=== PATIENT | male | born 1980 | race Caucasian/White ===

== ENCOUNTER → 2017-08-04 | Outpatient (CLI) | payer OTHER ==
[~2017-08-04] MED LIST: CLON0.5T3 PO; DIPH-437 PO; LTHSR/300 PO; MEDLIST; MOME100A INH; MULT-506 PO; PRLSR20 PO; QUET1TAB32 PO; UNISOM PO
--- NOTE | 2017-08-04 10:42 | DIAGNOSTIC IMAGING REPORT ---
ABDOMEN FOR HERNIA CLINICAL HISTORY: INGUINAL HERNIA hernia TECHNIQUE: Ultrasound COMPARISON STUDY: 07/21/2012 FINDINGS: Current study shows no evidence for hernia. Pre and post Valsalva maneuvers were attempted. IMPRESSION: Normal study. No evidence for hernia. The above report was generated using voice recognition software. It may contain grammatical, syntax or spelling errors. Electronically signed by: Jesse Mauro M.D. 08/04/2017 10:41 AM Dictated Date/Time: 08/04/2017 10:40 AM
== END | disposition home or self-care (01) ==
LOC: C.ULTRBC 10:07
PROVIDERS: ATTEND Nurse Practitioner Adult Health
DX: K40.90 Unilateral inguinal hernia, without obstruction or gangrene, not specified as recurrent (principal); R10.814 Left lower quadrant abdominal tenderness

== ENCOUNTER → 2017-08-19 | Outpatient (CLI) | payer OTHER ==
[~2017-08-19] MED LIST changes: +OPTIRAY 320 IV PRN
--- NOTE | 2017-08-19 16:52 | DIAGNOSTIC IMAGING REPORT ---
ABD/PELVIS IV AND ORAL CONT CLINICAL HISTORY: 37 years-old Male presenting with DIARRHEA, LLQ ABD TENDERNESS. TECHNIQUE: Multidetector CT of the abdomen and pelvis was performed after the administration of oral and intravenous contrast. IV contrast: 115 mL of Optiray 328 A dose lowering technique was used consistent with the principles of ALARA (as low as reasonably achievable). COMPARISON: None. CT DOSE (mGy.cm): The estimated cumulative dose is 535.98 mGy.cm. FINDINGS: Snap Shearer topogram: Evidence of hernia repair in the left inguinal region. Lung bases: Minimal dependent changes likely atelectasis. Mosaic attenuation could suggest small airways disease. Normal heart size. No pericardial or pleural effusion. Liver: Normal morphology. No liver lesion. Patent hepatic vasculature. Biliary: No intrahepatic or extrahepatic biliary ductal dilatation. Normal gallbladder. Pancreas: Normal. Spleen: Normal. Adrenal glands: Normal. Kidneys and ureters: Normal. No hydronephrosis. Bladder: Normal. Pelvic organs: Prostate and seminal vesicles normal. Bowel: Moderate stool burden in the right and transverse colon. The appendix is normal. No bowel obstruction. Peritoneal cavity: No free fluid or intraperitoneal gas. Lymph nodes: No enlarged lymph nodes in the abdomen or pelvis. Vasculature: Aorta and IVC patent and normal in caliber. Abdominal wall: Postsurgical changes of left inguinal hernia repair. Musculoskeletal: Normal. IMPRESSION: 1. No acute intra-abdominal pathology. Left lower quadrant demonstrates evidence of left inguinal hernia repair. No evidence of recurrent herniation. Electronically signed by: Brayan Everett M.D. 08/19/2017 4:51 PM Dictated Date/Time: 08/19/2017 4:46 PM
== END | disposition home or self-care (01) ==
LOC: C.CTS 16:17
PROVIDERS: ATTEND Nurse Practitioner Adult Health
DX: R11.10 Vomiting, unspecified (principal); R19.7 Diarrhea, unspecified; R10.30 Lower abdominal pain, unspecified; R10.814 Left lower quadrant abdominal tenderness

== ENCOUNTER → 2017-08-29 | Outpatient (CLI) | payer OTHER ==
[~2017-08-29] MED LIST changes: -CLON0.5T3 PO; +KLN/5 PO; -OPTIRAY 320 IV PRN
--- NOTE | 2017-08-29 12:23 | DIAGNOSTIC IMAGING REPORT ---
ULTRASOUND OF THE THYROID GLAND CLINICAL HISTORY: Lymphadenopathy.. COMPARISON STUDY: No priors. TECHNIQUE: Real-time, grayscale, and color flow sonography of the thyroid gland is performed utilizing a high-frequency linear transducer. Images are reviewed in the transverse and longitudinal planes. Additional survey imaging of the neck was performed to assess for lymphadenopathy. FINDINGS: Right lobe: The right lobe of the thyroid gland is top normal in size and somewhat heterogeneous in echotexture, measuring 5.7 x 2.4 x 2.3 cm. Left lobe: The left lobe of the thyroid gland is normal in size and somewhat heterogeneous in echotexture, measuring 5.8 x 2.5 x 2.6 cm. Isthmus: The thyroid isthmus is normal in appearance and measures 0.5 cm in AP diameter. Lymph nodes: There is a complex structure identified in the left neck which measures 2.9 x 1.8 x 2.2 cm. This appears to be least partially necrotic or cystic. Prominent right cervical lymph nodes are identified. These demonstrate large fatty conchis and measure up to 1.8 cm in length. IMPRESSION: 1. The thyroid gland is mild heterogeneous in echotexture. No focal thyroid lesion is seen. 2. There is a 2.9 cm indeterminant complex lesion in the left neck which appears to be at least partially cystic or necrotic. This could represent a necrotic/infected lymph node, a congenital lesion such as a branchial cleft cyst with possible superinfection, or less likely necrotic neoplasm. Clinical correlation will be essential. Clinical follow-up to resolution is recommended. If this fails to resolve additional imaging with contrast-enhanced CT she considered prior to tissue sampling. 3. Additional prominent cervical lymph nodes are noted as above. Electronically signed by: Duane Calixto M.D. 08/29/2017 12:22 PM Dictated Date/Time: 08/29/2017 12:17 PM
== END | disposition home or self-care (01) ==
LOC: C.ULTRBC 10:11
PROVIDERS: ATTEND Nurse Practitioner Adult Health
DX: R59.1 Generalized enlarged lymph nodes (principal)

== ENCOUNTER → 2017-09-04 | Outpatient (CLI) | payer OTHER ==
[~2017-09-04] MED LIST changes: +OPTIRAY 320 IV PRN
--- NOTE | 2017-09-04 16:37 | DIAGNOSTIC IMAGING REPORT ---
SOFT TISSUE NECK WITH CLINICAL HISTORY: 37 years-old Male presenting with ABNORMAL ULTRASOUND, LYMPH NODE ABCESS, marker placed at the site of clinical concern. TECHNIQUE: Multidetector CT of the neck was performed after the administration of intravenous contrast. IV contrast: 116 mL of Optiray 320. A dose lowering technique was used consistent with the principles of ALARA (as low as reasonably achievable). COMPARISON: Ultrasound from 08/29/2017. CT DOSE (mGy.cm): The estimated cumulative dose is 596.31 mGy.cm. FINDINGS: Pocket Builder topogram: Unremarkable. Round well-defined 2 cm lesion inferior to the left angle the mandible and submandibular gland, anterior to the left internal jugular vein and left carotid bulb. No extension between the left internal and external carotid arteries. Prominent left facial vein drains into the internal jugular vein immediately inferior to the lesion. The lesion demonstrates subtle nodular peripheral enhancement at the inferior margin (series 3 image 245) though the remainder of the lesion appears cystic and nonenhancing. This lesion is below the level of the hyoid bone and likely within the carotid space. No significantly enlarged lymph nodes by CT size criteria. Vasculature patent. Thyroid gland normal. No suspicious nodular soft tissue along the aerodigestive tract. No effacement of the valleculae or performed sinuses. Minimal groundglass opacity at the superior segment of the left lower lobe and in the right apex. Osseous structures normal. Intracranially vibration within normal limits. IMPRESSION: Predominantly cystic lesion at the level of the left carotid bifurcation with apparent peripheral nodular enhancement inferiorly. This does not have imaging characteristics to suggest a necrotic lymph node. Among differential considerations, this appearance favors a venolymphatic malformation/cavernous lymphangioma. Branchial cleft cyst would not be expected to demonstrate such nodular enhancement. This is not a typical appearance for a neurogenic tumor given the paucity of soft tissue. Electronically signed by: Brayan Everett M.D. 09/04/2017 4:36 PM Dictated Date/Time: 09/04/2017 4:25 PM
== END | disposition home or self-care (01) ==
LOC: C.CTS 16:07
PROVIDERS: ATTEND Nurse Practitioner Adult Health
DX: R93.8 Abnormal findings on diagnostic imaging of other specified body structures (principal); R59.0 Localized enlarged lymph nodes; L04.0 Acute lymphadenitis of face, head and neck

== ENCOUNTER → 2017-09-16 | Outpatient (CLI) | payer OTHER ==
[~2017-09-16] MED LIST changes: +CLON0.5T3 PO; -KLN/5 PO; -OPTIRAY 320 IV PRN
--- NOTE | 2017-09-16 14:12 | DIAGNOSTIC IMAGING REPORT ---
ULTRASOUND-GUIDED FINE-NEEDLE ASPIRATION BIOPSY OF A LEFT NECK MASS. CLINICAL HISTORY: R22.1 left neck mass COMPARISON STUDY: CT scan dated 09/04/2017, ultrasound dated 08/29/2017 FINDINGS: A timeout was performed. The risks of the procedure were explained the patient, and informed consent was obtained. The patient was prepped in sterile fashion. The skin was anesthetized 1% lidocaine. Under ultrasound guidance, aspiration was performed with a 25-gauge needle. Cystic fluid was withdrawn. A second pass was performed utilizing a 22-gauge needle. 4 cc of straw-colored cystic fluid was removed. The attending pathologist requested a third pass with sampling of the cyst wall. This was performed with a 25-gauge needle. There were no immediate complications. Final pathology is pending at this time. IMPRESSION: Successful aspiration of a cystic left neck mass. 4 cc of straw-colored ascitic fluid was removed. Final pathology is pending at this time. Electronically signed by: Omer Olguin M.D. 09/16/2017 2:11 PM Dictated Date/Time: 09/16/2017 2:07 PM
== END | disposition home or self-care (01) ==
LOC: C.ULTR 12:31
DX: R22.1 Localized swelling, mass and lump, neck (principal)

== ENCOUNTER → 2017-10-01 | Outpatient (CLI) | payer OTHER ==
--- NOTE | 2017-10-01 14:20 | DIAGNOSTIC IMAGING REPORT ---
ULTRASOUND GUIDED FINE ASPIRATION OF CYSTIC LEFT NECK MASS CLINICAL HISTORY: Neck mass. COMPARISON STUDY: CT of the neck September 04, 2017 and neck ultrasound August 29, 2017. PROCEDURE: The procedure, risks and benefits were discussed with the patient and informed written consent was obtained. The procedure was performed by Dr. Camacho following a timeout. Sonography of the neck demonstrated a complex cystic left level 4 mass which corresponds to the previously identified abnormality. This measures 2.6 x 1.2 x 1.6 cm. An inferior solid component was noted and was targeted for fine needle aspiration. Skin was prepped and draped in sterile fashion and local anesthesia was achieved with 1% lidocaine. Under direct ultrasound guidance, 4 25-gauge fine needle aspirations were performed. Predominantly cyst contents were noted a few atypical cells. No further sampling was performed given 4 passes. The patient tolerated the procedure well and no immediate complications were evident. IMPRESSION: Ultrasound guided fine needle aspiration of 2.6 cm complex cystic left level 4 cervical mass. Inferior solid component of lesion targeted during biopsy. Electronically signed by: Buck Camacho M.D. 10/01/2017 2:19 PM Dictated Date/Time: 10/01/2017 2:16 PM
== END | disposition home or self-care (01) ==
LOC: C.ULTR 12:36
PROVIDERS: ATTEND Physician Assistant
DX: R22.1 Localized swelling, mass and lump, neck (principal)

== ENCOUNTER 2023-02-18 11:14 | Inpatient (IN) ==
--- NOTE | 2023-02-18 11:26 | Emergency Department Note ---
ED Provider Note NAME: OBEY SMITH AGE: 42 SEX: M : 1980 ARRIVES VIA: Ambulance INFORMANT: [Patient][, ] ED PROVIDER(S): [Gerber Amato MD] I did review an operative report from Dr. Vital from November 2022. The patient did have a left inguinal hernia at that time he did have hernia with mesh lysis of adhesions to the sigmoid colon and left side of abdominal wall. CHIEF COMPLAINT: [] MEDICAL DECISION MAKING: [Note all interventions, Interpret results, Remember additional problems, list any social risk factors] Prior /Outside records reviewed: [none] Differential diagnosis: [] Diagnostics, as interpreted by me: ECG: [none] Cardiac monitoring: An order was placed for continuous cardiac monitoring. The monitor shows a rate of [] with [] rhythm. [Patient was placed on pulse oximetry] Medical decision rules: [none] Imaging studies: See below HPI: [] PAST MEDICAL HISTORY: [See Below] PAST SURGICAL HISTORY: [See Below] SOCIAL HISTORY: [See Below] HOME MEDICATIONS: [See Below] ALLERGIES: [See Below] VITALS: [See Below] PHYSICAL EXAMINATION: GENERAL: NAD, [wearing a mask,] non-toxic. EYE EXAM: Normal conjunctiva. PERRL, no anisocoria and EOM's grossly intact w/o pain. NECK: Supple, no nuchal rigidity, no adenopathy, non-tender. No signs of meningismus. FROM of the neck with good chin to chest and neck extension. No stridor. LUNGS: Clear to auscultation. Normal chest wall mechanics. HEART: NSR, no MRG. ABDOMEN: Abdomen soft, non-tender, no masses, no rebound or guarding. BACK: No CVA TTP. SKIN: No rashes and no bruising. UPPER EXTREMITIES: Upper extremities are grossly normal. LOWER EXTREMITIES: Grossly normal, no edema. NEURO EXAM: A&O x3, cranial nerves II-XII grossly intact, normal speech, moves all 4 extremities. Past Med/Surg History Medical History (Updated 12/25/22 @ 07:02 by Himanshu Vital MD) Asthma inhaler daily and prn, nebulizer prn Bipolar disorder Cancer thyroid; s/p radioactive iodine tx; now on supplement Chronic obstructive pulmonary disease extensive smoking hx Fatty liver GERD (gastroesophageal reflux disease) Hyperlipidemia Insomnia Medical marijuana use Restless leg syndrome Temporomandibular joint disorder mild, no device Surgical History History of carpal tunnel surgery of left wrist History of colonoscopy History of esophagogastroduodenoscopy (EGD) History of inguinal hernia repair History of thyroidectomy, total History of tooth extraction all teeth removed under local Family History Grandmother (Maternal) Family history of diabetes mellitus Grandfather (Maternal) Prostate cancer Coronary heart disease Father Hypertension Mother Depression Family/Other FHx: allergies Cancer Asthma Other No family history of adverse response to anesthesia Denies family history of Ovarian cancer Myocardial infarction Breast cancer Colorectal cancer Stroke Social History Smoking Status: Current every day smoker Tobacco Type: Cigarettes Cigarettes Per Day: 20 a day (advised); Second Hand Exposure: No; Do You Dip or Chew Tobacco: No; Hx Alcohol Use: No Hx Substance Use: Yes (medical marijuana (advised on policy)) Last Used Substance Other:: LAST USED "LAST NIGHT" Substance Use Type Other:: MOTHER STATES THAT PT HAS RX FOR MARIJUANA Preferred Language: Bulgarian Communication Ability: Effective Statistical Reporting Analyst Required: No Beliefs That Will Affect Care: None Current Living Situation: Parent Feels Safe at Home: Yes Assistive Devices: Denture - Upper, Denture - Lower, Glasses and Nebulizer Allergies Allergies Allergy/AdvReac Type Severity Reaction Status Date / Time calcium polycarbophil Allergy Mild "Binds me Verified 12/25/22 06:11 [From FiberCon] up real bad" grass pollen Allergy Mild Congested Verified 12/25/22 06:11 ragweed pollen Allergy Mild Congested Verified 12/25/22 06:11 sulfamethoxazole Allergy Mild Rash Verified 12/25/22 06:11 [From Septra] trimethoprim [From Mayra] Allergy Mild Rash Verified 12/25/22 06:11 Home Meds Home Medications Medication Instructions Recorded Confirmed Medical Marijuana 1 dose UD PRN Pain 08/19/18 12/25/22 omeprazole 20 mg tablet,delayed 40 mg PO QAM 08/19/18 12/25/22 release calcium carbonate 200 mg calcium 200 mg PO TID PRN GERD 11/10/18 12/25/22 (500 mg) chewable tablet (Tums) cholecalciferol (vitamin D3) 50 2,000 units PO QAM 02/17/19 12/25/22 mcg (2,000 unit) capsule gabapentin 300 mg capsule 900 mg PO BID 02/17/19 12/25/22 hydroxyzine HCl 50 mg tablet 50 - 150 mg PO HS PRN Sleep 02/17/19 12/25/22 acetaminophen 500 mg tablet 1,000 mg PO Q6H PRN Pain 12/16/22 12/25/22 albuterol sulfate 2.5 mg/3 mL 2.5 mg inhalation UD PRN Shortness 12/16/22 12/25/22 (0.083 %) solution for nebulization Of Breath azelastine 137 mcg (0.1 %) nasal 1 spray intranasal BID 12/16/22 12/25/22 spray aerosol buspirone 15 mg tablet 15 mg PO BID 12/16/22 12/25/22 ferrous sulfate 325 mg (65 mg 325 mg PO 3XWK 12/16/22 12/25/22 iron) tablet fluticasone fur. 200 mcg-umeclid 1 inh inhalation QAM 12/16/22 12/25/22 62.5 mcg-vilant 25 mcg inhalat.powder (Trelegy Ellipta) fluticasone propionate 50 2 spray intranasal QAM 12/16/22 12/25/22 mcg/actuation nasal spray,suspension levothyroxine 150 mcg tablet 150 mcg PO QAM 12/16/22 12/25/22 mirtazapine 45 mg tablet 45 mg PO HS 12/16/22 12/25/22 montelukast 10 mg tablet 10 mg PO QAM 12/16/22 12/25/22 (Singulair) thiamine HCl (vitamin B1) 100 mg 100 mg PO QAM 12/16/22 12/25/22 tablet topiramate 100 mg tablet (Topamax) 100 mg PO HS 12/16/22 12/25/22 Previous Rx's Medication Instructions Recorded albuterol sulfate 90 mcg/actuation 2 puff inhalation QID PRN SHORT OF 10/05/20 aerosol inhaler (Ventolin HFA) BREATH #18 grams oxycodone-acetaminophen 5 mg-325 1 tab PO Q6H PRN pain #20 tabs 12/25/22 mg tablet (Percocet) Results & Data (ED) Vital Signs Vital Signs - 24 hr 06/20/23 11:23 Temperature 36.7 C Temperature Source Oral Pulse Rate 97 H Respiratory Rate 18 Respiratory Effort / Characteristics Non-Labored Respiratory Depth Normal Respiratory Pattern Regular Blood Pressure 129/94 Blood Pressure Mean 105 Pulse Oximetry 97 Oxygen Delivery Method Room Air Sepsis New/Unexplained Change in Mental Status No Sepsis Action Taken by Nursing No Action Required Discharge Plan Visit Data Chief Complaint: Mental Health Evaluation Stated Complaint: [facility] ED Provider: Carson Apodaca Forms Stand Alone Forms: [facility], Suicide Prevention Resources Prescriptions Prescriptions: No Action albuterol sulfate [Ventolin HFA] 90 mcg/actuation HFA aerosol inhaler 2 puff INHALATION QID PRN (Reason: SHORT OF BREATH) Qty: 18 5RF cholecalciferol (vitamin D3) 2,000 unit capsule 2,000 units PO QAM omeprazole 20 mg Tablet,Delayed Release (Dr/Ec) 40 mg PO QAM Medical Marijuana 1 dose UD PRN (Reason: Pain) Rx Instructions: INHALATION AND ORAL PER PATIENT gabapentin 300 mg capsule 900 mg PO BID Patient Comments: 300 mg PO take 1 tablet in am, take 3 tablet in pm; TAKES 1 TAB IN AM/2 TABS IN PM hydroxyzine HCl 50 mg tablet 50 - 150 mg PO HS PRN (Reason: Sleep) Patient Comments: 50 mg PO take 1 -2 tablet at bedtime PRN; Rx Instructions: 50 mg PO take 1 -2 tablet at bedtime PRN; calcium carbonate [Tums] 200 mg calcium (500 mg) Tablet,Chewable 200 mg PO TID PRN (Reason: GERD) thiamine HCl (vitamin B1) 100 mg Tablet 100 mg PO QAM levothyroxine 150 mcg Tablet 150 mcg PO QAM mirtazapine 45 mg Tablet 45 mg PO HS montelukast [Singulair] 10 mg Tablet 10 mg PO QAM azelastine 137 mcg (0.1 %) Aerosol,[place] 1 spray INTRANASAL BID Rx Instructions: administer into each nostril topiramate [Topamax] 100 mg Tablet 100 mg PO HS fluticasone propionate 50 mcg/actuation [place],Suspension 2 spray INTRANASAL QAM Rx Instructions: administer into each nostril Trelegy Ellipta 200-62.5-25 mcg Blister With Device 1 inh INHALATION QAM ferrous sulfate 325 mg (65 mg iron) Tablet 325 mg PO 3XWK acetaminophen 500 mg Tablet 1,000 mg PO Q6H PRN (Reason: Pain) buspirone 15 mg Tablet 15 mg PO BID albuterol sulfate 2.5 mg /3 mL (0.083 %) Solution For Nebulization 2.5 mg INHALATION UD PRN (Reason: Shortness Of Breath) oxycodone-acetaminophen [Percocet] 5-325 mg tablet 1 tab PO Q6H PRN (Reason: pain) Qty: 20 0RF Referrals Referrals: Quincy Parson DO [Primary Care Provider] -
--- NOTE | 2023-02-18 11:57 | Emergency Department Note ---
Impression & Plan Suicidal ideations, Mood disorder ED Provider Note NAME: OBEY SMITH AGE: 42 SEX: M : 1980 ARRIVES VIA: Ambulance INFORMANT: Patient ED PROVIDER(S): Carson Apodaca DO CHIEF COMPLAINT: Suicidal thoughts HPI: Patient is a 42-year-old male who presents to the ER for suicidal thoughts. Patient was seen today by psychiatry Yfn Silverio. He expressed that in the past 2 months he has held a gun to his mouth and was going to kill himself but his father stopped him and this occurred back in November. He also attempted overdosing but was just vomiting. He does not believe his medications for bipolar are working. Specifically the BuSpar makes him feel very agitated and jittery and anxious. He does not feel that he can go on any further. He does not want to be admitted. He notes he has not had any suicidal thoughts or attempts in the past month. He denies any headache or change in vision. No chest pain or shortness of breath. No nausea, vomiting, or diarrhea. No dysuria, urgency, or frequency. PAST MEDICAL HISTORY:See Below PAST SURGICAL HISTORY:See Below FAMILY HISTORY:See Below SOCIAL HISTORY:See Below HOME MEDICATIONS:See Below ALLERGIES:See Below VITALS:See Below PHYSICAL EXAMINATION: GENERAL: Sitting up in bed, alert, well appearing, well nourished, no distress, non-toxic EYE EXAM: normal conjunctiva. OROPHARYNX: mucous membranes are moist LUNGS: Clear to auscultation. Normal chest wall mechanics HEART: no murmurs, S1 normal and S2 normal ABDOMEN: abdomen soft, non-tender, normo-active bowel sounds, no masses, no rebound or guarding. UPPER EXTREMITIES: upper extremities are grossly normal. LOWER EXTREMITIES: No pitting edema. NEURO EXAM: Normal sensorium, cranial nerves II-XII grossly intact, normal speech, no gross weakness of arms, no gross weakness of legs. PSYCH: Admits to feeling very depressed and suicide attempts about 2 months ago. Would like to come in for inpatient treatment. MEDICAL DECISION MAKING: Patient is a 42-year-old male who presents ER for above-stated complaint. External records reviewed. Labs show no significant leukocytosis or anemia. BMP with LFTs bilirubin and TSH was fairly unremarkable. UA was clean. Tox was positive for marijuana. Alcohol negative. COVID-negative. Patient was me dically stable under my care. Patient was signed out to Dr. Faust is awaiting placement. Patient was seen and evaluated by her psychiatric acute care occupational therapist prior to this. She did make several referrals. I did discuss case with her and patient was excepted to 3 S. at 3 PM ED OBSERVATION: The patient was placed in observation status at 1115. Medical stability and psychiatric evaluation. During the time in observation, the patient was frequently reassessed and received blood work and evaluation by her psychiatric acute care occupational therapist. On Final reassessment the patient was resting comfortably and the patient was excepted to 3 S. at 3 PM. Patient was observed for a total of 4 hours in the ER. Triage Nursing notes reviewed. Limited review of prior medical records performed Vital Signs: reviewed and remarkable for no significant abnormalities Differential diagnosis: Mood disorder, infection, hypoglycemia, electrolyte abnormalities, cardiac sources, intracerebral event, toxicologic, trauma, neurologic, as well as other pathologies. ER treatment provided: See below Diagnostics interpreted by me include EKG and cardiac monitoring as listed below: -ECG: none -Laboratory studies:Interpreted by me as stated above in MDM and shown below. Imaging studies: Xrays: As interpreted by me:none CTs show: none Consultation(s): As described in MDM Procedures:none Critical Care: None Past Med/Surg History Medical History (Updated 02/18/23 @ 14:17 by Carson Apodaca DO) Asthma inhaler daily and prn, nebulizer prn Bipolar disorder Cancer thyroid; s/p radioactive iodine tx; now on supplement Chronic obstructive pulmonary disease extensive smoking hx Fatty liver GERD (gastroesophageal reflux disease) Hyperlipidemia Insomnia Medical marijuana use Restless leg syndrome Temporomandibular joint disorder mild, no device Surgical History History of carpal tunnel surgery of left wrist History of colonoscopy History of esophagogastroduodenoscopy (EGD) History of inguinal hernia repair History of thyroidectomy, total History of tooth extraction all teeth removed under local Family History Grandmother (Maternal) Family history of diabetes mellitus Grandfather (Maternal) Prostate cancer Coronary heart disease Father Hypertension Mother Depression Family/Other FHx: allergies Cancer Asthma Other No family history of adverse response to anesthesia Denies family history of Ovarian cancer Myocardial infarction Breast cancer Colorectal cancer Stroke Social History Smoking Status: Current every day smoker Tobacco Type: Cigarettes Cigarettes Per Day: 20 a day (advised); Second Hand Exposure: No; Do You Dip or Chew Tobacco: No; Hx Alcohol Use: No Hx Substance Use: Yes (medical marijuana (advised on policy)) Last Used Substance Other:: LAST USED "LAST NIGHT" Substance Use Type Other:: MOTHER STATES THAT PT HAS RX FOR MARIJUANA Preferred Language: Luxembourgish Communication Ability: Effective Paving Foreman Required: No Beliefs That Will Affect Care: None Current Living Situation: Parent Feels Safe at Home: Yes Gender Identity: Male Assistive Devices: Denture - Upper, Denture - Lower, Glasses and Nebulizer Allergies Allergies Allergy/AdvReac Type Severity Reaction Status Date / Time calcium polycarbophil Allergy Mild "Binds me Verified 12/25/22 06:11 [From FiberCon] up real bad" grass pollen Allergy Mild Congested Verified 12/25/22 06:11 ragweed pollen Allergy Mild Congested Verified 12/25/22 06:11 sulfamethoxazole Allergy Mild Rash Verified 12/25/22 06:11 [From Septra] trimethoprim [From Septra] Allergy Mild Rash Verified 12/25/22 06:11 Home Meds Home Medications Medication Instructions Recorded Confirmed Medical Marijuana 1 dose UD PRN Pain 08/19/18 12/25/22 omeprazole 20 mg tablet,delayed 40 mg PO QAM 08/19/18 12/25/22 release calcium carbonate 200 mg calcium 200 mg PO TID PRN GERD 11/10/18 12/25/22 (500 mg) chewable tablet (Tums) cholecalciferol (vitamin D3) 50 2,000 units PO QAM 02/17/19 12/25/22 mcg (2,000 unit) capsule gabapentin 300 mg capsule 900 mg PO BID 02/17/19 12/25/22 hydroxyzine HCl 50 mg tablet 50 - 150 mg PO HS PRN Sleep 02/17/19 12/25/22 acetaminophen 500 mg tablet 1,000 mg PO Q6H PRN Pain 12/16/22 12/25/22 albuterol sulfate 2.5 mg/3 mL 2.5 mg inhalation UD PRN Shortness 12/16/22 12/25/22 (0.083 %) solution for nebulization Of Breath azelastine 137 mcg (0.1 %) nasal 1 spray intranasal BID 12/16/22 12/25/22 spray aerosol buspirone 15 mg tablet 15 mg PO BID 12/16/22 12/25/22 ferrous sulfate 325 mg (65 mg 325 mg PO 3XWK 12/16/22 12/25/22 iron) tablet fluticasone fur. 200 mcg-umeclid 1 inh inhalation QAM 12/16/22 12/25/22 62.5 mcg-vilant 25 mcg inhalat.powder (Trelegy Ellipta) fluticasone propionate 50 2 spray intranasal QAM 12/16/22 12/25/22 mcg/actuation nasal spray,suspension levothyroxine 150 mcg tablet 150 mcg PO QAM 12/16/22 12/25/22 mirtazapine 45 mg tablet 45 mg PO HS 12/16/22 12/25/22 montelukast 10 mg tablet 10 mg PO QAM 12/16/22 12/25/22 (Singulair) thiamine HCl (vitamin B1) 100 mg 100 mg PO QAM 12/16/22 12/25/22 tablet topiramate 100 mg tablet (Topamax) 100 mg PO HS 12/16/22 12/25/22 Previous Rx's Medication Instructions Recorded albuterol sulfate 90 mcg/actuation 2 puff inhalation QID PRN SHORT OF 10/05/20 aerosol inhaler (Ventolin HFA) BREATH #18 grams oxycodone-acetaminophen 5 mg-325 1 tab PO Q6H PRN pain #20 tabs 12/25/22 mg tablet (Percocet) Results & Data (ED) Vital Signs Vital Signs - 24 hr 02/18/23 11:23 02/18/23 14:26 Temperature 36.7 C Temperature Source Oral Pulse Rate 97 H Pulse Rate [Finger] 70 Respiratory Rate 18 18 Respiratory Effort / Characteristics Non-Labored Non-Labored Respiratory Depth Normal Normal Respiratory Pattern Regular Regular Blood Pressure 129/94 Blood Pressure [Left Arm] 136/86 Blood Pressure Mean 105 Blood Pressure Mean [Left Arm] 102 Pulse Oximetry 97 97 Oxygen Delivery Method Room Air Room Air Sepsis New/Unexplained Change in Mental Status No Sepsis Action Taken by Nursing No Action Required Laboratory Data 02/18/23 11:35 02/18/23 11:35 Lab Results 02/18/23 02/18/23 02/18/23 Range/Units 11:33 11:35 11:35 WBC 9.01 (4.8-10.8) K/ul RBC 5.21 (4.70-6.10) M/uL Hgb 15.4 (14.0-18.0) g/dl Hct 46.3 (42.0-52.0) % MCV 88.9 (80.0-100.0) fL MCH 29.6 (25.0-34.0) pg MCHC 33.3 (32.0-36.0) g/dL RDW Std Deviation 42.5 (36.4-46.3) fL RDW Coeff of Eugenia 13.0 (11.5-14.5) % Plt Count 313 (130-400) K/uL MPV 8.4 L (9.4-12.4) fL Immature Gran % (Auto) 0.6 % Neut % (Auto) 66.8 % Lymph % (Auto) 24.8 % Fisher % (Auto) 6.2 % Eos % (Auto) 1.3 % Baso % (Auto) 0.3 % Neut # (Auto) 6.02 (1.40-6.50) K/uL Lymph # (Auto) 2.23 (1.2-3.4) K/uL Fisher # (Auto) 0.56 (0.11-0.59) K/uL Eos # (Auto) 0.12 (0-0.50) K/uL Baso # (Auto) 0.03 (0-0.2) K/uL Immature Gran # (Auto) 0.05 (0.01-0.20) K/uL Sodium 138 (136-145) mmol/L Potassium 4.3 (3.5-5.1) mmol/L Chloride 110 H (98-107) mmol/L Carbon Dioxide 23 (21-32) mmol/L Anion Gap 5 (3-11) BUN 22 (6-23) mg/dl Creatinine 1.07 (0.6-1.4) mg/dl Est Cr Clr Drug Dosing Not Reportable Est GFR ( Amer) 100.1 ml/min Est GFR (Non-Af Amer) 86.4 ml/min BUN/Creatinine Ratio 20.6 H (10-20) Glucose 106 H (70-99(Fasting)) mg/dl Calcium 8.9 (8.6-10.3) mg/dl Total Bilirubin 0.2 (0.2-1.0) mg/dl AST 15 (13-39) U/L ALT 9 (7-52) U/L Alkaline Phosphatase 75 (34-104) U/L Total Protein 7.2 (6.0-8.3) gm/dl Albumin 4.5 (3.4-5.0) gm/dl Globulin 2.7 (2.5-4.0) gm/dl Albumin/Globulin Ratio 1.7 (0.9-2) TSH (0.300-4.500) uIu/ml Free T4 (0.61-1.60) ng/dl Urine Color Urine Appearance (Clear) Urine pH (4.5-7.5) Ur Specific [place] (1.000-1.030) Urine Protein (Negative) Urine Glucose (UA) (Negative) Urine Ketones (Negative) Urine Blood (Negative) Urine Nitrite (Negative) Urine Bilirubin (Negative) Urine Urobilinogen (Negative) Ur Leukocyte Esterase (Negative) Salicylates (3.0-30) mg/dl Urine Opiates Screen (Neg) Ur Methadone, Qual (Neg) Acetaminophen (10-30) ug/ml Urine Barbiturates (Neg) Ur Phencyclidine (PCP) (Neg) U Amphetamin/Meth Scrn (Neg) MDMA (Ecstasy) Screen (Neg) U Benzodiazepines Scrn (Neg) Ur Cocaine Metabolite (Neg) U Marijuana (THC) Screen (Neg) Ethyl Alcohol mg/dL (<10.0) mg/dl SARS-CoV-2, RNA, NAAT NEGATIVE (NEGATIVE) 02/18/23 02/18/23 02/18/23 Range/Units 11:35 11:35 11:35 WBC (4.8-10.8) K/ul RBC (4.70-6.10) M/uL Hgb (14.0-18.0) g/dl Hct (42.0-52.0) % MCV (80.0-100.0) fL MCH (25.0-34.0) pg MCHC (32.0-36.0) g/dL RDW Std Deviation (36.4-46.3) fL RDW Coeff of Eugenia (11.5-14.5) % Plt Count (130-400) K/uL MPV (9.4-12.4) fL Immature Gran % (Auto) % Neut % (Auto) % Lymph % (Auto) % Fisher % (Auto) % Eos % (Auto) % Baso % (Auto) % Neut # (Auto) (1.40-6.50) K/uL Lymph # (Auto) (1.2-3.4) K/uL Fisher # (Auto) (0.11-0.59) K/uL Eos # (Auto) (0-0.50) K/uL Baso # (Auto) (0-0.2) K/uL Immature Gran # (Auto) (0.01-0.20) K/uL Sodium (136-145) mmol/L Potassium (3.5-5.1) mmol/L Chloride (98-107) mmol/L Carbon Dioxide (21-32) mmol/L Anion Gap (3-11) BUN (6-23) mg/dl Creatinine (0.6-1.4) mg/dl Est Cr Clr Drug Dosing Est GFR ( Amer) ml/min Est GFR (Non-Af Amer) ml/min BUN/Creatinine Ratio (10-20) Glucose (70-99(Fasting)) mg/dl Calcium (8.6-10.3) mg/dl Total Bilirubin (0.2-1.0) mg/dl AST (13-39) U/L ALT (7-52) U/L Alkaline Phosphatase (34-104) U/L Total Protein (6.0-8.3) gm/dl Albumin (3.4-5.0) gm/dl Globulin (2.5-4.0) gm/dl Albumin/Globulin Ratio (0.9-2) TSH 0.172 L (0.300-4.500) uIu/ml Free T4 0.68 (0.61-1.60) ng/dl Urine Color Urine Appearance (Clear) Urine pH (4.5-7.5) Ur Specific [place] (1.000-1.030) Urine Protein (Negative) Urine Glucose (UA) (Negative) Urine Ketones (Negative) Urine Blood (Negative) Urine Nitrite (Negative) Urine Bilirubin (Negative) Urine Urobilinogen (Negative) Ur Leukocyte Esterase (Negative) Salicylates < 3.0 L (3.0-30) mg/dl Urine Opiates Screen (Neg) Ur Methadone, Qual (Neg) Acetaminophen < 3 L (10-30) ug/ml Urine Barbiturates (Neg) Ur Phencyclidine (PCP) (Neg) U Amphetamin/Meth Scrn (Neg) MDMA (Ecstasy) Screen (Neg) U Benzodiazepines Scrn (Neg) Ur Cocaine Metabolite (Neg) U Marijuana (THC) Screen (Neg) Ethyl Alcohol mg/dL < 10.0 (<10.0) mg/dl SARS-CoV-2, RNA, NAAT (NEGATIVE) 02/18/23 02/18/23 Range/Units 11:40 11:40 WBC (4.8-10.8) K/ul RBC (4.70-6.10) M/uL Hgb (14.0-18.0) g/dl Hct (42.0-52.0) % MCV (80.0-100.0) fL MCH (25.0-34.0) pg MCHC (32.0-36.0) g/dL RDW Std Deviation (36.4-46.3) fL RDW Coeff of Eugenia (11.5-14.5) % Plt Count (130-400) K/uL MPV (9.4-12.4) fL Immature Gran % (Auto) % Neut % (Auto) % Lymph % (Auto) % Fisher % (Auto) % Eos % (Auto) % Baso % (Auto) % Neut # (Auto) (1.40-6.50) K/uL Lymph # (Auto) (1.2-3.4) K/uL Fisher # (Auto) (0.11-0.59) K/uL Eos # (Auto) (0-0.50) K/uL Baso # (Auto) (0-0.2) K/uL Immature Gran # (Auto) (0.01-0.20) K/uL Sodium (136-145) mmol/L Potassium (3.5-5.1) mmol/L Chloride (98-107) mmol/L Carbon Dioxide (21-32) mmol/L Anion Gap (3-11) BUN (6-23) mg/dl Creatinine (0.6-1.4) mg/dl Est Cr Clr Drug Dosing Est GFR ( Amer) ml/min Est GFR (Non-Af Amer) ml/min BUN/Creatinine Ratio (10-20) Glucose (70-99(Fasting)) mg/dl Calcium (8.6-10.3) mg/dl Total Bilirubin (0.2-1.0) mg/dl AST (13-39) U/L ALT (7-52) U/L Alkaline Phosphatase (34-104) U/L Total Protein (6.0-8.3) gm/dl Albumin (3.4-5.0) gm/dl Globulin (2.5-4.0) gm/dl Albumin/Globulin Ratio (0.9-2) TSH (0.300-4.500) uIu/ml Free T4 (0.61-1.60) ng/dl Urine Color Yellow Urine Appearance Clear (Clear) Urine pH 7.5 (4.5-7.5) Ur Specific [place] 1.013 (1.000-1.030) Urine Protein Negative (Negative) Urine Glucose (UA) Negative (Negative) Urine Ketones Negative (Negative) Urine Blood Negative (Negative) Urine Nitrite Negative (Negative) Urine Bilirubin Negative (Negative) Urine Urobilinogen Negative (Negative) Ur Leukocyte Esterase Negative (Negative) Salicylates (3.0-30) mg/dl Urine Opiates Screen Neg (Neg) Ur Methadone, Qual Neg (Neg) Acetaminophen (10-30) ug/ml Urine Barbiturates Neg (Neg) Ur Phencyclidine (PCP) Neg (Neg) U Amphetamin/Meth Scrn Neg (Neg) MDMA (Ecstasy) Screen Neg (Neg) U Benzodiazepines Scrn Neg (Neg) Ur Cocaine Metabolite Neg (Neg) U Marijuana (THC) Screen Pos H (Neg) Ethyl Alcohol mg/dL (<10.0) mg/dl SARS-CoV-2, RNA, NAAT (NEGATIVE) Discharge Plan Visit Data Chief Complaint: Mental Health Evaluation Stated Complaint: [facility] ED Provider: Carson Apodaca Discharge Problem: Suicidal ideations, Mood disorder Forms Stand Alone Forms: My [facility], Suicide Prevention Resources Prescriptions Prescriptions: No Action albuterol sulfate [Ventolin HFA] 90 mcg/actuation HFA aerosol inhaler 2 puff INHALATION QID PRN (Reason: SHORT OF BREATH) Qty: 18 5RF cholecalciferol (vitamin D3) 2,000 unit capsule 2,000 units PO QAM omeprazole 20 mg Tablet,Delayed Release (Dr/Ec) 40 mg PO QAM Medical Marijuana 1 dose UD PRN (Reason: Pain) Rx Instructions: INHALATION AND ORAL PER PATIENT gabapentin 300 mg capsule 900 mg PO BID Patient Comments: 300 mg PO take 1 tablet in am, take 3 tablet in pm; TAKES 1 TAB IN AM/2 TABS IN PM hydroxyzine HCl 50 mg tablet 50 - 150 mg PO HS PRN (Reason: Sleep) Patient Comments: 50 mg PO take 1 -2 tablet at bedtime PRN; Rx Instructions: 50 mg PO take 1 -2 tablet at bedtime PRN; calcium carbonate [Tums] 200 mg calcium (500 mg) Tablet,Chewable 200 mg PO TID PRN (Reason: GERD) thiamine HCl (vitamin B1) 100 mg Tablet 100 mg PO QAM levothyroxine 150 mcg Tablet 150 mcg PO QAM mirtazapine 45 mg Tablet 45 mg PO HS montelukast [Singulair] 10 mg Tablet 10 mg PO QAM azelastine 137 mcg (0.1 %) Aerosol,[place] 1 spray INTRANASAL BID Rx Instructions: administer into each nostril topiramate [Topamax] 100 mg Tablet 100 mg PO HS fluticasone propionate 50 mcg/actuation [place],Suspension 2 spray INTRANASAL QAM Rx Instructions: administer into each nostril Trelegy Ellipta 200-62.5-25 mcg Blister With Device 1 inh INHALATION QAM ferrous sulfate 325 mg (65 mg iron) Tablet 325 mg PO 3XWK acetaminophen 500 mg Tablet 1,000 mg PO Q6H PRN (Reason: Pain) buspirone 15 mg Tablet 15 mg PO BID albuterol sulfate 2.5 mg /3 mL (0.083 %) Solution For Nebulization 2.5 mg INHALATION UD PRN (Reason: Shortness Of Breath) oxycodone-acetaminophen [Percocet] 5-325 mg tablet 1 tab PO Q6H PRN (Reason: pain) Qty: 20 0RF Referrals Referrals: Quincy Parson DO [Primary Care Provider] -
[2023-02-18 12:13] LABS: Appearance Urine Clear (Clear); Bilirubin Urine Negative (Negative); Blood Urine Negative (Negative); Color Urine Yellow; Glucose Urine UA Negative (Negative); Ketones Urine Negative (Negative); Leukocyte Esterase Urine Negative (Negative); Nitrite Urine Negative (Negative); Protein Urine Negative (Negative); Specific Gravity Urine 1.013 (1.000-1.030); Urobilinogen Urine Negative (Negative); pH Urine 7.5 (4.5-7.5)
[2023-02-18 12:37] LABS: Basophils # (auto) 0.03 K/uL (0-0.2); Basophils % (auto) 0.3 %; Eosinophils # (auto) 0.12 K/uL (0-0.50); Eosinophils % (auto) 1.3 %; Hematocrit (blood only) 46.3 % (42.0-52.0); Hemoglobin 15.4 g/dl (14.0-18.0); Immature Granulocytes # (auto) 0.05 K/uL (0.01-0.20); Immature Granulocytes % (auto) 0.6 %; Lymphocytes # (auto) 2.23 K/uL (1.2-3.4); Lymphocytes % (auto) 24.8 %; Mean Corpuscular Hemoglobin 29.6 pg (25.0-34.0); Mean Corpuscular Hgb Conc 33.3 g/dL (32.0-36.0); Mean Corpuscular Volume 88.9 fL (80.0-100.0); Mean Platelet Volume 8.4 fL (9.4-12.4); Monocytes # (auto) 0.56 K/uL (0.11-0.59); Monocytes % (auto) 6.2 %; Neutrophils # (auto) 6.02 K/uL (1.40-6.50); Neutrophils % (auto) 66.8 %; Platelet Count 313 K/uL (130-400); RDW Standard Deviation 42.5 fL (36.4-46.3); Red Blood Count 5.21 M/uL (4.70-6.10); White Blood Count 9.01 K/ul (4.8-10.8)
[2023-02-18 12:49] LABS: Acetaminophen < 3 ug/ml (10-30); Salicylate < 3.0 mg/dl (3.0-30)
[2023-02-18 12:52] LABS: Alanine Aminotransferase 9 U/L (7-52); Albumin Globulin Ratio 1.7 (0.9-2); Albumin Level 4.5 gm/dl (3.4-5.0); Alkaline Phosphatase 75 U/L (34-104); Anion Gap 5 (3-11); Aspartate Aminotransferase 15 U/L (13-39); BUN Creatinine Ratio 20.6 (10-20); Bilirubin,Total 0.2 mg/dl (0.2-1.0); Blood Urea Nitrogen 22 mg/dl (6-23); Calcium 8.9 mg/dl (8.6-10.3); Carbon Dioxide 23 mmol/L (21-32); Chloride 110 mmol/L (98-107); Est GFR (African American) 100.1 ml/min; Est GFR (Non-African American) 86.4 ml/min; Globulin 2.7 gm/dl (2.5-4.0); Glucose 106 mg/dl (70-99(Fasting)); Potassium 4.3 mmol/L (3.5-5.1); Sodium 138 mmol/L (136-145); Total Protein 7.2 gm/dl (6.0-8.3)
[2023-02-18 12:55] LABS: Amphetamines+Metham, Urine Neg (Neg); Barbiturates, Urine Neg (Neg); Benzodiazepine, Urine Neg (Neg); Cocaine, Urine Neg (Neg); MDMA (Ecstacy), Urine Neg (Neg); Methadone, Urine Neg (Neg); Opiate, Urine Neg (Neg); Phencyclidine, Urine Neg (Neg)
[2023-02-18 13:05] LABS: Thyroid Stimulating Hormone 0.172 uIu/ml (0.300-4.500)
[2023-02-18 14:16] LABS: T4 Free Thyroxine 0.68 ng/dl (0.61-1.60)
[2023-02-18] MEDS ORDERED: ACETAMINOPHEN 325 MG TAB PO PRN (14:42)
[2023-02-18] MEDS ORDERED: hydrOXYzine HCl 25 MG TAB PO PRN (14:42)
[2023-02-18] MEDS ORDERED: MAGNESIUM HYDROXIDE SUSP 30 ML UDC PO PRN (14:42)
[2023-02-18] MEDS ORDERED: BISMUTH SUBSALICYLATE LIQD 236 ML PO PRN (14:42)
[2023-02-18] MEDS ORDERED: ALUMINUM/MAGNESIUM SUSP 30 ML UDC PO PRN (14:42)
[2023-02-18] MEDS ORDERED: SODIUM CHLORIDE 0.65% NA SOLN 45 ML (OCEAN) PRN (14:42)
[2023-02-18] MEDS ORDERED: ACETAMINOPHEN 500 MG TAB PO PRN (14:44)
[2023-02-18] MEDS ORDERED: ALBUTEROL HFA 8 GM INHALER INH PRN (14:44)
[2023-02-18] MEDS ORDERED: traZODone HCL 50 MG TAB PO PRN (14:47)
[2023-02-18] MEDS ORDERED: NICOTINE POLACRILEX 2 MG GUM MT PRN (15:14)
[2023-02-18] MEDS: NICOTINE 21 MG/24 HR TDSY TD SCH (17:21)
[2023-02-18] MEDS ORDERED: TOPIRAMATE 100 MG TAB PO SCH (21:00)
[2023-02-18] MEDS: GABAPENTIN 300 MG CAP PO SCH (21:30)
[2023-02-18] MEDS: MIRTAZAPINE SOLTAB 15 MG PO SCH (21:30)
[2023-02-18] MEDS: AZELASTINE HCL 0.1% NASAL 200 SPRAYS/27,400 MCG BTL SCH (21:31)
[2023-02-18] MEDS ORDERED: TOPIRAMATE 50 MG TAB PO SCH (22:00)
[2023-02-18] MEDS ORDERED: QUEtiapine FUMARATE 200 MG TAB PO SCH (22:00)
--- NOTE | 2023-02-19 08:08 | History & Physical ---
Date of Service February 19, 2023 Impression / Recommendations Impression 42 yo male with 10+ year hx of mood disorder, remote alcohol abuse, presents with multiple psychosocial stressors and recent suicide attempt/alcohol binge and near fatal gesture. He notes worsening irritability with Buspar but primarily presents with depression. He states previous manic symptoms were mainly insomnia and racing thoughts. Records from 2022 [facility] reviewed, will request EKG. (1) Suicidal ideations: Plan The patient was admitted to the [facility] ([facility] unit) on q15 min checks (behavioral with suicide precautions) for safety. The patient will participate in group, recreational, and milieu therapies and will be offered additional individual and family sessions as clinically appropriate. Reviewed cholesterol panel, his triglycerides are quite high (likely Seroquel). Buspar has already been discontinued, topamax may be decreasing his appetite so will d/c. Begin Seroquel taper 600 mg hs with plan for another atypical trial, perhaps Zyprexa given sleep and appetite issues. Consider Remeron taper. Ambien short term use as prn for sleep as multiple agents ineffective. Will add mid day dose of Neurontin to address breakthrough pain/mood. PT consult as was to start outpatient PT this week for left UE neuropathy. Inventory Assets Strengths: manages complex medical, family oriented Needs: improve coping, outpatient therapy Suicide Risk Level Suicide Risk Level: High-Moderate (q15 min suicide checks) Risk Factors Assessment Male: Yes : Yes Do You Have Access To A Gun?: No Health Problems: Yes Mental Health Diagnoses: Yes Substance Use Disorders: Yes (hx EToh, recent use, ongoing MJ) Previous Attempt: Yes Family History of Suicide: No Previous Psychiatric Hospitalization: Yes Protective Factors Assessment Employed: No Supportive Family: Yes (parents as able) Psychiatric History Identifying Data OBEY SMITH is a 42-year-old M who currently lives in [place], has a history of bipolar disorder, and was admitted on 02/18/23 14:42 on a 201 voluntary commitment for suicidality. Chief Complaint concerned meds not working, recent suicide attempts History of Present Illness The patient reported that he's been feeling more irritable and depressed. He isn't sleeping as well and having more racing thoughts about suicide. In November he had a gun in his mouth, his father physically intervened and removed the guns from the home. The patient mentioned drinking excessive alcohol with his medications with the hope of not waking up but "nothing happened but I threw up." He feels guilty for relapsing after 15 years of sobriety. He describes his life as "down hill" since his cancer surgery 5 years ago--his friends stopped "coming around", he is estranged from his sister, parents are aging (father may have early dementia), his girlfriend broke up with him recently and he's been unable to find a job that can accommodate his post op left UE neuropathy. He feels that his doctor may be colluding with his ex to ignore his pain complaints and recently involved a patient advocate through [facility] to get a return call. He doesn't feel that his meds have been helping for some time nor is the medical MJ (mainly flower) helping with his pain or sleep. He notes an increase in health related anxiety given his ongoing GI issues, need to start PT, and his need for EKG to rule out QTc due to polypharmacy (reports last EKG 1 month ago). Past Psychiatric History Previous Psych History: transitioning psych services from [facility] to [facility]. Current Psychiatric Diagnosis: Depression Outpatient Services: Was to start treatment with [facility]. Previous Psych Admissions: [facility] 10 + years ago Do You Have Access To A Gun?: No History of Previous Suicide Attempt: Yes Past Medication Trials: Helper, Doxepin, Klonopin, Risperdal, current meds; feels Buspar is agitating Past Head Trauma/Neuro History History of Concussion/Seizure: No Allergies Allergy/AdvReac Type Severity Reaction Status Date / Time calcium polycarbophil Allergy Mild "Binds me Verified 12/25/22 06:11 [From FiberCon] up real bad" grass pollen Allergy Mild Congested Verified 12/25/22 06:11 ragweed pollen Allergy Mild Congested Verified 12/25/22 06:11 sulfamethoxazole Allergy Mild Rash Verified 12/25/22 06:11 [From ] trimethoprim [From ] Allergy Mild Rash Verified 12/25/22 06:11 Home Medications Medication Instructions Recorded Confirmed Type omeprazole 20 mg tablet,delayed 40 mg PO QAM 08/19/18 02/18/23 History release calcium carbonate 200 mg calcium 200 mg PO TID PRN GERD 11/10/18 02/18/23 History (500 mg) chewable tablet (Tums) hydroxyzine HCl 50 mg tablet 50 - 150 mg PO HS PRN Sleep 02/17/19 02/18/23 History albuterol sulfate 90 mcg/actuation 2 puff inhalation QID PRN SHORT OF 10/05/20 02/18/23 Rx aerosol inhaler (Ventolin HFA) BREATH #18 grams acetaminophen 500 mg tablet 1,000 mg PO Q6H PRN Pain 12/16/22 02/18/23 History albuterol sulfate 2.5 mg/3 mL 2.5 mg inhalation UD PRN Shortness 12/16/22 02/18/23 History (0.083 %) solution for nebulization Of Breath azelastine 137 mcg (0.1 %) nasal 1 spray intranasal BID 12/16/22 02/18/23 History spray aerosol ferrous sulfate 325 mg (65 mg 325 mg PO 3XWK 12/16/22 02/18/23 History iron) tablet fluticasone fur. 200 mcg-umeclid 1 inh inhalation QAM 12/16/22 02/18/23 History 62.5 mcg-vilant 25 mcg inhalat.powder (Trelegy Ellipta) fluticasone propionate 50 2 spray intranasal QAM 12/16/22 02/18/23 History mcg/actuation nasal spray,suspension levothyroxine 150 mcg tablet 150 mcg PO QAM 12/16/22 02/18/23 History mirtazapine 45 mg tablet 45 mg PO HS 12/16/22 02/18/23 History montelukast 10 mg tablet 10 mg PO QAM 12/16/22 02/18/23 History (Singulair) thiamine HCl (vitamin B1) 100 mg 100 mg PO QAM 12/16/22 02/18/23 History tablet topiramate 100 mg tablet (Topamax) 150 mg PO HS 12/16/22 02/18/23 History gabapentin 300 mg capsule 900 mg BID 02/18/23 02/18/23 History quetiapine 400 mg tablet (Seroquel) 800 mg PO HS 02/18/23 02/18/23 History tizanidine 4 mg capsule 4 mg PO Q6 PRN Muscle Spasm 02/18/23 02/18/23 History buspirone 10 mg tablet 20 mg PO BID 02/19/23 02/19/23 History cholecalciferol (vitamin D3) 125 125 mcg PO DAILY 02/19/23 02/19/23 History mcg (5,000 unit) capsule diclofenac sodium 50 mg 50 mg PO TID PRN Pain 02/19/23 02/19/23 History tablet,delayed release Family History Family History of: Depression (mother) Alcohol History Hx of Alcohol Use Over the Past 12 Months: Yes (binge drinking past two weeks after 15 yr sober) AUDIT Total Score: 12 Smoking Use Have You Smoked or Used Tobacco Products in the Last 30 Days: Yes tobacco type: cigarettes Smoking Status: Current every day smoker Smoking packs per day: 40 Substance History Hx of Prescription Med Misuse Over the Past 12 Months: No Hx of Over the Counter Med Misuse Over the Past 12 Months: No Hx of Inhalent Misuse Over the Past 12 Months: No Hx of Organic Substance Use Over the Past 12 Months: Yes (marijuana) Hx of Illegal Substances/Street Drug Use Over Past 12 Months: No Problems as a Result of Past Substance Use: None Identified Personal History Living Arrangements: Home Childhood: 1 sister Highest Grade Completed: Some College Employment Status: Unemployed Marital Status: Single Number Of Children: 0 Beliefs That Will Affect Care: None Current Legal Problems: No Hx Legal Problems: Yes (remote DUI) Hx Traumatic Life Events: Yes (cancer dx) Patient History Medical History (Updated 02/19/23 @ 12:51 by Keerthi Shah MD) Asthma inhaler daily and prn, nebulizer prn Bipolar disorder Cancer thyroid; s/p radioactive iodine tx; now on supplement Chronic obstructive pulmonary disease extensive smoking hx Fatty liver GERD (gastroesophageal reflux disease) Hyperlipidemia Insomnia Medical marijuana use Restless leg syndrome Temporomandibular joint disorder mild, no device Surgical History History of carpal tunnel surgery of left wrist History of colonoscopy History of esophagogastroduodenoscopy (EGD) History of inguinal hernia repair History of thyroidectomy, total History of tooth extraction all teeth removed under local Family History Grandmother (Maternal) Family history of diabetes mellitus Grandfather (Maternal) Prostate cancer Coronary heart disease Father Hypertension Mother Depression Family/Other FHx: allergies Cancer Asthma Other No family history of adverse response to anesthesia Denies family history of Ovarian cancer Myocardial infarction Breast cancer Colorectal cancer Stroke Social History Smoking Status: Current every day smoker Tobacco Type: Cigarettes Cigarettes Per Day: 20 a day (advised); Second Hand Exposure: No; Do You Dip or Chew Tobacco: No; Hx Alcohol Use: No Hx Substance Use: Yes (medical marijuana (advised on policy)) Last Used Substance Other:: LAST USED "LAST NIGHT" Substance Use Type Other:: MOTHER STATES THAT PT HAS RX FOR MARIJUANA Preferred Language: Wolof Communication Ability: Effective Jury Consultant Required: No Beliefs That Will Affect Care: None Current Living Situation: Parent Feels Safe at Home: Yes Gender Identity: Male Assistive Devices: Denture - Upper, Denture - Lower, Glasses and Nebulizer Review of Systems Review of Systems: All systems reviewed & are unremarkable except as noted in HPI & below Physical Exam Psychiatric: Orientation: alert and oriented x 3 Apperance: appropriately dressed and appropriately groomed Eye Contact: good eye contact Motor Behavior: no abnormal motor movements Speech: normal rate/rhythm/volume of speech Affect: + depressed affect Mood: + depressed mood Thought Process: goal directed thought process Thought Content: reality based without delusions Suicidal Thoughts: + reports suicidal thoughts (passive, OD, no plan or intent here) Homicidal Thoughts: denies homicidal thoughts Hallucinations: no auditory hallucinations and no visual hallucinations Cognition: attention grossly intact and language grossly intact Estimated Intelligence: consistent with education level Insight: + limited insight Judgment: + limited judgement Vital Signs (Past 24 Hours): Last Vital Signs Temp 36.6 C 02/19/23 06:45 Pulse 93 H 02/19/23 06:46 Resp 16 02/19/23 06:45 BP 111/82 02/19/23 06:46 Pulse Ox 98 02/18/23 16:02 O2 Del Method Room Air 02/18/23 16:02 Exam Statement: A physical exam was performed in the ED by Dr. Apodaca for the purposes of medical clearance. I accept that physical as correct and adequate for the purposes of the inpatient physical exam. Results & Data ([facility]) Laboratory Results Laboratory Results - last 24 hr 02/18/23 02/18/23 02/18/23 11:33 11:35 11:35 WBC 9.01 RBC 5.21 Hgb 15.4 Hct 46.3 MCV 88.9 MCH 29.6 MCHC 33.3 RDW Std Deviation 42.5 RDW Coeff of Eugenia 13.0 Plt Count 313 MPV 8.4 L Immature Gran % (Auto) 0.6 Neut % (Auto) 66.8 Lymph % (Auto) 24.8 Knox % (Auto) 6.2 Eos % (Auto) 1.3 Baso % (Auto) 0.3 Neut # (Auto) 6.02 Lymph # (Auto) 2.23 Knox # (Auto) 0.56 Eos # (Auto) 0.12 Baso # (Auto) 0.03 Immature Gran # (Auto) 0.05 Sodium 138 Potassium 4.3 Chloride 110 H Carbon Dioxide 23 Anion Gap 5 BUN 22 Creatinine 1.07 Est Cr Clr Drug Dosing Not Reportable Est GFR ( Amer) 100.1 Est GFR (Non-Af Amer) 86.4 BUN/Creatinine Ratio 20.6 H Glucose 106 H Calcium 8.9 Total Bilirubin 0.2 AST 15 ALT 9 Alkaline Phosphatase 75 Total Protein 7.2 Albumin 4.5 Globulin 2.7 Albumin/Globulin Ratio 1.7 TSH Free T4 Urine Color Urine Appearance Urine pH Ur Specific [place] Urine Protein Urine Glucose (UA) Urine Ketones Urine Blood Urine Nitrite Urine Bilirubin Urine Urobilinogen Ur Leukocyte Esterase Salicylates Urine Opiates Screen Ur Methadone, Qual Acetaminophen Urine Barbiturates Ur Phencyclidine (PCP) U Amphetamin/Meth Scrn MDMA (Ecstasy) Screen U Benzodiazepines Scrn Ur Cocaine Metabolite U Marijuana (THC) Screen U Marijuana THC Carboxy Drug Screen Comment Ethyl Alcohol mg/dL SARS-CoV-2, RNA, NAAT NEGATIVE 02/18/23 02/18/23 02/18/23 11:35 11:35 11:35 WBC RBC Hgb Hct MCV MCH MCHC RDW Std Deviation RDW Coeff of Eugenia Plt Count MPV Immature Gran % (Auto) Neut % (Auto) Lymph % (Auto) Knox % (Auto) Eos % (Auto) Baso % (Auto) Neut # (Auto) Lymph # (Auto) Knox # (Auto) Eos # (Auto) Baso # (Auto) Immature Gran # (Auto) Sodium Potassium Chloride Carbon Dioxide Anion Gap BUN Creatinine Est Cr Clr Drug Dosing Est GFR ( Amer) Est GFR (Non-Af Amer) BUN/Creatinine Ratio Glucose Calcium Total Bilirubin AST ALT Alkaline Phosphatase Total Protein Albumin Globulin Albumin/Globulin Ratio TSH 0.172 L Free T4 0.68 Urine Color Urine Appearance Urine pH Ur Specific [place] Urine Protein Urine Glucose (UA) Urine Ketones Urine Blood Urine Nitrite Urine Bilirubin Urine Urobilinogen Ur Leukocyte Esterase Salicylates < 3.0 L Urine Opiates Screen Ur Methadone, Qual Acetaminophen < 3 L Urine Barbiturates Ur Phencyclidine (PCP) U Amphetamin/Meth Scrn MDMA (Ecstasy) Screen U Benzodiazepines Scrn Ur Cocaine Metabolite U Marijuana (THC) Screen U Marijuana THC Carboxy Drug Screen Comment Ethyl Alcohol mg/dL < 10.0 SARS-CoV-2, RNA, NAAT 02/18/23 02/18/23 02/18/23 11:40 11:40 11:40 WBC RBC Hgb Hct MCV MCH MCHC RDW Std Deviation RDW Coeff of Eugenia Plt Count MPV Immature Gran % (Auto) Neut % (Auto) Lymph % (Auto) Knox % (Auto) Eos % (Auto) Baso % (Auto) Neut # (Auto) Lymph # (Auto) Knox # (Auto) Eos # (Auto) Baso # (Auto) Immature Gran # (Auto) Sodium Potassium Chloride Carbon Dioxide Anion Gap BUN Creatinine Est Cr Clr Drug Dosing Est GFR ( Amer) Est GFR (Non-Af Amer) BUN/Creatinine Ratio Glucose Calcium Total Bilirubin AST ALT Alkaline Phosphatase Total Protein Albumin Globulin Albumin/Globulin Ratio TSH Free T4 Urine Color Yellow Urine Appearance Clear Urine pH 7.5 Ur Specific [place] 1.013 Urine Protein Negative Urine Glucose (UA) Negative Urine Ketones Negative Urine Blood Negative Urine Nitrite Negative Urine Bilirubin Negative Urine Urobilinogen Negative Ur Leukocyte Esterase Negative Salicylates Urine Opiates Screen Neg Ur Methadone, Qual Neg Acetaminophen Urine Barbiturates Neg Ur Phencyclidine (PCP) Neg U Amphetamin/Meth Scrn Neg MDMA (Ecstasy) Screen Neg U Benzodiazepines Scrn Neg Ur Cocaine Metabolite Neg U Marijuana (THC) Screen Pos H U Marijuana THC Carboxy Pending Drug Screen Comment Pending Ethyl Alcohol mg/dL SARS-CoV-2, RNA, NAAT Current Inpatient Medications Current Inpatient Medications: Current Inpatient Medications Acetaminophen (Acetaminophen 500 Mg Tab) 1,000 mg PO Q6H PRN PRN Reason: Pain Stop: 03/20/23 14:43 Albuterol (Albuterol Hfa 8 Gm Inhaler) 2 puffs INH QID PRN PRN Reason: SHORT OF BREATH Stop: 03/20/23 14:43 Azelastine HCl (Azelastine Hcl 0.1% Nasal 200 Sprays/27,400 Mcg Btl) 1 sprays NA BID LOUISE Stop: 03/20/23 20:59 Last Admin: 02/18/23 21:31 Dose: 1 sprays Bismuth Subsalicylate (Bismuth Subsalicylate Liqd 236 Ml) 15 ml PO PRN PRN PRN Reason: Loose Stool Stop: 03/20/23 14:41 Calcium Carbonate (Calcium Carbonate 500 Mg Chewable Tab) 500 mg PO TID PRN PRN Reason: GERD Stop: 03/20/23 14:43 Ferrous Sulfate (Ferrous Sulfate 325 Mg Tab) 325 mg PO MoWeFr LOUISE Stop: 03/21/23 08:59 Fluticasone Furoate (Fluticasone Furoate 200mcg 14 Puffs/Inhaler) 1 puffs INH DAILY LOUISE Stop: 03/21/23 08:59 Fluticasone Propionate (Fluticasone Propionate Na Spr 16 Gm Btl) 2 sprays NA QAM [facility] Stop: 03/21/23 08:59 Gabapentin (Gabapentin 300 Mg Cap) 900 mg PO BID [facility] Stop: 03/20/23 20:59 Last Admin: 02/18/23 21:30 Dose: 900 mg Hydroxyzine HCl (Hydroxyzine Hcl 25 Mg Tab) 50 mg PO Q4H PRN PRN Reason: Anxiety Stop: 03/20/23 14:41 Last Admin: 02/18/23 21:40 Dose: 50 mg Levothyroxine Sodium (Levothyroxine Sodium 150 Mcg Tablet) 150 mcg PO DAILYBB [facility] Stop: 03/21/23 06:29 Magnesium Hydroxide (Magnesium Hydroxide Susp 30 Ml Udc) 30 ml PO DAILY PRN PRN Reason: Constipation Stop: 03/20/23 14:41 Mirtazapine (Mirtazapine Soltab 15 Mg) 45 mg PO HS [facility] Stop: 03/20/23 20:59 Last Admin: 02/18/23 21:30 Dose: 45 mg Miscellaneous (Remove Nicoderm Patch) 1 each N/A DAILY@59 [facility] Stop: 03/21/23 08:58 Montelukast Sodium (Montelukast Sodium 10 Mg Tablet) 10 mg PO QAM [facility] Stop: 03/21/23 08:59 Nicotine (Nicotine 21 Mg/24 Hr Tdsy) 21 mg TD QAM [facility] Stop: 03/20/23 15:44 Last Admin: 02/18/23 17:21 Dose: 21 mg Nicotine Polacrilex (Nicotine Polacrilex 2 Mg Gum) 1 piece MT PRN PRN PRN Reason: nicotine withdrawal Stop: 03/20/23 15:13 Last Admin: 02/18/23 15:39 Dose: 1 piece Pantoprazole Sodium (Pantoprazole 40 Mg Tab) 40 mg PO QAM [facility] Stop: 03/21/23 08:59 Quetiapine Fumarate (Quetiapine Fumarate 200 Mg Tab) 800 mg PO HS [facility] Stop: 03/20/23 21:59 Last Admin: 02/18/23 21:30 Dose: 800 mg Sodium Chloride (Sodium Chloride 0.65% Na Soln 45 Ml (Dane)) 1 - 2 sprays NA PRN PRN PRN Reason: Nasal Dryness/Congestion Stop: 03/20/23 14:41 Thiamine HCl (Thiamine Hcl 100 Mg Tab) 100 mg PO QAM [facility] Stop: 03/21/23 08:59 Topiramate (Topiramate 50 Mg Tab) 150 mg PO HS [facility] Stop: 03/20/23 21:59 Last Admin: 02/18/23 21:29 Dose: 150 mg Trazodone HCl (Trazodone Hcl 50 Mg Tab) 50 mg PO HS PRN PRN Reason: Insomnia Stop: 03/20/23 14:46 Umeclidinium/Vilanterol (Umeclidinium/Vilanterol 62.5/25mcg 7 Puffs/Inhaler) 1 puffs INH DAILY [facility] Stop: 03/21/23 08:59 Vitamin D (Cholecalciferol 1,000 Units 25 Mcg Tab) 2,000 units PO QAM [facility] Stop: 03/21/23 08:59
[2023-02-19] MEDS: LEVOTHYROXINE SODIUM 150 MCG TABLET PO SCH (08:37)
[2023-02-19] MEDS ORDERED: NON-FORMULARY MEDICATION (Fluticasone-Umeclidin-Vilanter [Trelegy Ellipta] 200-62.5-25 mcg INH SCH (09:00)
[2023-02-19 09:05] LABS: Chol HDL Ratio 7.2 (0-5)
[2023-02-19] MEDS: FLUTICASONE PROPIONATE NA SPR 16 GM BTL SCH (09:33)
[2023-02-19] MEDS: FLUTICASONE FUROATE 200MCG 14 PUFFS/INHALER INH SCH (09:33)
[2023-02-19] MEDS: AZELASTINE HCL 0.1% NASAL 200 SPRAYS/27,400 MCG BTL SCH ×2 (09:34→21:10)
[2023-02-19] MEDS: CHOLECALCIFEROL 1,000 UNITS 25 MCG TAB PO SCH (09:34)
[2023-02-19] MEDS: FERROUS SULFATE 325 MG TAB PO SCH (09:35)
[2023-02-19] MEDS: GABAPENTIN 300 MG CAP PO SCH ×2 (09:35→21:09)
[2023-02-19] MEDS: THIAMINE HCL 100 MG TAB PO SCH (09:35)
[2023-02-19] MEDS: MONTELUKAST SODIUM 10 MG TABLET PO SCH (09:35)
[2023-02-19] MEDS: PANTOprazole 40 MG TAB PO SCH (09:35)
[2023-02-19] MEDS: UMECLIDINIUM/VILANTEROL 62.5/25MCG 7 PUFFS/INHALER INH SCH (09:36)
[2023-02-19] MEDS: NICOTINE 21 MG/24 HR TDSY TD SCH (09:42)
[2023-02-19] MEDS ORDERED: tiZANidine HCL 4 MG TABLET PO PRN (11:51)
[2023-02-19] MEDS: DOCUSATE SODIUM 100 MG CAP PO SCH ×2 (11:52→21:06)
[2023-02-19] MEDS ORDERED: DICLOFENAC SODIUM 25 MG TABDR PO PRN (11:53)
[2023-02-19] MEDS: CALCIUM CARBONATE 500 MG CHEWABLE TAB PO PRN ×2 (11:55→20:31)
[2023-02-19] MEDS ORDERED: ZOLPIDEM TARTRATE 5 MG TAB PO PRN (12:26)
[2023-02-19] MEDS ORDERED: GABAPENTIN 600 MG TAB PO ONE (14:00)
[2023-02-19] MEDS: DICLOFENAC SODIUM 25 MG TABDR PO SCH ×2 (14:31→21:07)
[2023-02-19] MEDS ORDERED: tiZANidine HCL 4 MG TABLET PO SCH ×2 (14:34→18:00)
[2023-02-19] MEDS: tiZANidine HCL 4 MG TABLET PO SCH ×2 (15:04→21:02)
[2023-02-19] MEDS: MIRTAZAPINE SOLTAB 15 MG PO SCH (21:04)
[2023-02-19] MEDS: QUEtiapine FUMARATE 300 MG TABLET PO SCH (21:10)
[2023-02-20] MEDS: LEVOTHYROXINE SODIUM 150 MCG TABLET PO SCH (07:44)
[2023-02-20] MEDS: NICOTINE 21 MG/24 HR TDSY TD SCH (08:36)
[2023-02-20] MEDS: AZELASTINE HCL 0.1% NASAL 200 SPRAYS/27,400 MCG BTL SCH ×2 (09:07→20:59)
[2023-02-20] MEDS: CHOLECALCIFEROL 1,000 UNITS 25 MCG TAB PO SCH (09:09)
[2023-02-20] MEDS: DICLOFENAC SODIUM 25 MG TABDR PO SCH ×3 (09:10→20:57)
[2023-02-20] MEDS: FLUTICASONE PROPIONATE NA SPR 16 GM BTL SCH (09:11)
[2023-02-20] MEDS: DOCUSATE SODIUM 100 MG CAP PO SCH ×2 (09:11→21:00)
[2023-02-20] MEDS: PANTOprazole 40 MG TAB PO SCH (09:12)
[2023-02-20] MEDS: GABAPENTIN 300 MG CAP PO SCH ×3 (09:12→21:02)
[2023-02-20] MEDS: FLUTICASONE FUROATE 200MCG 14 PUFFS/INHALER INH SCH (09:12)
[2023-02-20] MEDS: THIAMINE HCL 100 MG TAB PO SCH (09:12)
[2023-02-20] MEDS: MONTELUKAST SODIUM 10 MG TABLET PO SCH (09:12)
[2023-02-20] MEDS: UMECLIDINIUM/VILANTEROL 62.5/25MCG 7 PUFFS/INHALER INH SCH (09:13)
[2023-02-20] MEDS: tiZANidine HCL 4 MG TABLET PO SCH ×3 (09:13→21:04)
[2023-02-20] MEDS ORDERED: POLYETHYLENE (MIRALAX) 17 GM PACK PO PRN (09:33)
[2023-02-20 10:47] LABS: Marijuana Quant, GCMS Urine 411 ng/mL (<5)
--- NOTE | 2023-02-20 12:17 | Psychiatric Progress Note ---
Date of Service February 20, 2023 Impression / Recommendations Impression 42 yo male with 10+ year hx of mood disorder, remote alcohol abuse, presents with multiple psychosocial stressors and recent suicide attempt/alcohol binge and near fatal gesture. He notes worsening irritability with Buspar but primarily presents with depression. He states previous manic symptoms were mainly insomnia and racing thoughts. 02/20/23: improved (1) Suicidal ideations: Plan 02/20/23: Titrate Neurontin to 900 mg TID. family meeting. 02/19/23: The patient was admitted to the [facility] ([facility]) on q15 min checks (behavioral with suicide precautions) for safety. The patient will participate in group, recreational, and milieu therapies and will be offered additional individual and family sessions as clinically appropriate. Reviewed cholesterol panel, his triglycerides are quite high (likely Seroquel). Buspar has already been discontinued, topamax may be decreasing his appetite so will d/c. Begin Seroquel taper 600 mg hs with plan for another atypical trial, perhaps Zyprexa given sleep and appetite issues. Consider Remeron taper. Ambien short term use as prn for sleep as multiple agents ineffective. Will add mid day dose of Neurontin to address breakthrough pain/mood. PT consult as was to start outpatient PT this week for left UE neuropathy. Inventory Assets Strengths: manages complex medical, family oriented Needs: improve coping, outpatient therapy Suicide Risk Level Suicide Risk Level: Moderate (q15 min suicide checks) Risk Factors Assessment Male: Yes : Yes Do You Have Access To A Gun?: No Health Problems: Yes Mental Health Diagnoses: Yes Substance Use Disorders: Yes (hx EToh, recent use, ongoing MJ) Previous Attempt: Yes Family History of Suicide: No Previous Psychiatric Hospitalization: Yes Protective Factors Assessment Employed: No Supportive Family: Yes (parents as able) Interval History Identifying Information OBEY SMITH is a 42-year-old M who currently lives in [place], has a history of bipolar disorder, and was admitted on 02/18/23 14:42 on a 201 voluntary commitment for suicidality. Chief Complaint "I feel so much better already." Review of Systems Sleep Information Total Hours of Sleep: 6.5 Sleep Comments: PRN Vistaril at 2140 Meal Information Percent Meal Consumed - Breakfast: 90 Percent Meal Consumed - Lunch: 50 Percent Meal Consumed - Dinner: 30 Subjective Subjective Patient was seen & assessed and interval progress reviewed with nursing and social work. Sleep, pain and anxiety are improved. Racing thoughts have resolved. willing for meeting with mother. Physical Exam Psychiatric Orientation: alert and oriented x 3 Apperance: appropriately dressed and appropriately groomed Eye Contact: good eye contact Motor Behavior: no abnormal motor movements Speech: normal rate/rhythm/volume of speech Affect: + depressed affect Mood: + depressed mood Thought Process: goal directed thought process Thought Content: reality based without delusions Suicidal Thoughts: denies suicidal thoughts Homicidal Thoughts: denies homicidal thoughts Hallucinations: no auditory hallucinations and no visual hallucinations Cognition: attention grossly intact and language grossly intact Estimated Intelligence: consistent with education level Insight: + limited insight Judgment: + limited judgement Vital Signs (Past 24 Hours) Last Vital Signs Temp 36.6 C 02/20/23 06:39 Pulse 84 02/20/23 07:00 Resp 16 02/20/23 07:00 BP 127/86 02/20/23 06:40 Pulse Ox 98 02/20/23 07:00 O2 Del Method Room Air 02/20/23 07:00 Results & Data ([facility]) Laboratory Results Laboratory Results - last 24 hr 02/18/23 11:40 U Marijuana THC Carboxy 411 H Drug Screen Comment SEE NOTE Current Inpatient Medications Current Inpatient Medications: Current Inpatient Medications Acetaminophen (Acetaminophen 500 Mg Tab) 1,000 mg PO Q6H PRN PRN Reason: Pain Stop: 03/20/23 14:43 Last Admin: 02/19/23 09:35 Dose: 1,000 mg Albuterol (Albuterol Hfa 8 Gm Inhaler) 2 puffs INH QID PRN PRN Reason: SHORT OF BREATH Stop: 03/20/23 14:43 Last Admin: 02/20/23 07:00 Dose: 2 puffs Azelastine HCl (Azelastine Hcl 0.1% Nasal 200 Sprays/27,400 Mcg Btl) 1 sprays NA BID [facility] Stop: 03/20/23 20:59 Last Admin: 02/20/23 09:07 Dose: 1 sprays Bismuth Subsalicylate (Bismuth Subsalicylate Liqd 236 Ml) 15 ml PO PRN PRN PRN Reason: Loose Stool Stop: 03/20/23 14:41 Calcium Carbonate (Calcium Carbonate 500 Mg Chewable Tab) 500 mg PO TID PRN PRN Reason: GERD Stop: 03/20/23 14:43 Last Admin: 02/19/23 20:31 Dose: 500 mg Diclofenac Sodium (Diclofenac Sodium 25 Mg Tabdr) 50 mg PO TID [facility] Stop: 03/21/23 13:59 Last Admin: 02/20/23 09:10 Dose: 50 mg Docusate Sodium (Docusate Sodium 100 Mg Cap) 200 mg PO BID [facility] Stop: 03/22/23 20:59 Ferrous Sulfate (Ferrous Sulfate 325 Mg Tab) 325 mg PO MoWeFr [facility] Stop: 03/21/23 08:59 Last Admin: 02/19/23 09:35 Dose: 325 mg Fluticasone Furoate (Fluticasone Furoate 200mcg 14 Puffs/Inhaler) 1 puffs INH DAILY [facility] Stop: 03/21/23 08:59 Last Admin: 02/20/23 09:12 Dose: 1 puffs Fluticasone Propionate (Fluticasone Propionate Na Spr 16 Gm Btl) 2 sprays NA QAM [facility] Stop: 03/21/23 08:59 Last Admin: 02/20/23 09:11 Dose: 2 sprays Gabapentin (Gabapentin 300 Mg Cap) 900 mg PO TID [facility] Stop: 03/22/23 13:59 Hydroxyzine HCl (Hydroxyzine Hcl 25 Mg Tab) 50 mg PO Q4H PRN PRN Reason: Anxiety Stop: 03/20/23 14:41 Last Admin: 02/18/23 21:40 Dose: 50 mg Levothyroxine Sodium (Levothyroxine Sodium 150 Mcg Tablet) 150 mcg PO DAILYBB [facility] Stop: 03/21/23 06:29 Last Admin: 02/20/23 07:44 Dose: 150 mcg Magnesium Hydroxide (Magnesium Hydroxide Susp 30 Ml Udc) 30 ml PO DAILY PRN PRN Reason: Constipation Stop: 03/20/23 14:41 Mirtazapine (Mirtazapine Soltab 15 Mg) 45 mg PO HS [facility] Stop: 03/20/23 20:59 Last Admin: 02/19/23 21:04 Dose: 45 mg Miscellaneous (Remove Nicoderm Patch) 1 each N/A DAILY@0859 [facility] Stop: 03/21/23 08:58 Last Admin: 02/20/23 08:36 Dose: 1 each Montelukast Sodium (Montelukast Sodium 10 Mg Tablet) 10 mg PO QAM [facility] Stop: 03/21/23 08:59 Last Admin: 02/20/23 09:12 Dose: 10 mg Nicotine (Nicotine 21 Mg/24 Hr Tdsy) 21 mg TD QAM [facility] Stop: 03/20/23 15:44 Last Admin: 02/20/23 08:36 Dose: 21 mg Nicotine Polacrilex (Nicotine Polacrilex 2 Mg Gum) 1 piece MT PRN PRN PRN Reason: nicotine withdrawal Stop: 03/20/23 15:13 Last Admin: 02/18/23 15:39 Dose: 1 piece Pantoprazole Sodium (Pantoprazole 40 Mg Tab) 40 mg PO QAM [facility] Stop: 03/21/23 08:59 Last Admin: 02/20/23 09:12 Dose: 40 mg Polyethylene Glycol (Polyethylene (Miralax) 17 Gm Pack) 17 gm PO DAILY PRN PRN Reason: Constipation Stop: 03/22/23 09:32 Last Admin: 02/20/23 10:45 Dose: 17 gm Quetiapine Fumarate (Quetiapine Fumarate 300 Mg Tablet) 600 mg PO HS [facility] Stop: 03/21/23 21:59 Last Admin: 02/19/23 21:10 Dose: 600 mg Sodium Chloride (Sodium Chloride 0.65% Na Soln 45 Ml ([place])) 1 - 2 sprays NA PRN PRN PRN Reason: Nasal Dryness/Congestion Stop: 03/20/23 14:41 Thiamine HCl (Thiamine Hcl 100 Mg Tab) 100 mg PO QAM [facility] Stop: 03/21/23 08:59 Last Admin: 02/20/23 09:12 Dose: 100 mg Tizanidine HCl (Tizanidine Hcl 4 Mg Tablet) 4 mg PO TID [facility] Stop: 03/21/23 14:44 Last Admin: 02/20/23 09:13 Dose: 4 mg Umeclidinium/Vilanterol (Umeclidinium/Vilanterol 62.5/25mcg 7 Puffs/Inhaler) 1 puffs INH DAILY [facility] Stop: 03/21/23 08:59 Last Admin: 02/20/23 09:13 Dose: 1 puffs Vitamin D (Cholecalciferol 1,000 Units 25 Mcg Tab) 2,000 units PO QAM [facility] Stop: 03/21/23 08:59 Last Admin: 02/20/23 09:09 Dose: 2,000 units Zolpidem Tartrate (Zolpidem Tartrate 5 Mg Tab) 10 mg PO HS PRN PRN Reason: Sleep Stop: 03/21/23 12:25 Mental Health & Subst Abuse Tx Psychiatrist Name of Psychiatrist: RAGINI Urena Psychiatrist's Date Of Appointment With Psychiatric Provider: 02/25/23 Time of Appointment with Psychiatrist: 3:30 PM Psychiatric Appointment Comment: This appointment will be virtual. Therapist Name of Therapist: [facility] Therapist's Time of Therapist Appointment: You have been referred and placed on the waitlist. Therapy Appointment Comment: When a spot opens, you will be contacted directly. Leasing Machine Tender Name of Leasing Machine Tender: [facility] Phone Number for Leasing Machine Tender: [phone] Case Management Appointment Comment: A child support case officer will be assigned and follow- up with you directly. Post Discharge Appointments Primary Care Physician Name Of Family Doctor/PCP: Peggy Hoyt [facility] Time of Appointment with PCP: Please follow-up with your PCP as needed. Provider Appointment Comment: Amish Harrison, [place]ST[place] Connelly Sample Patternmaker Name of Sample Patternmaker: [facility] Phone Number of Sample Patternmaker: [phone] Sample Patternmaker Appointment Comment: A referral was made and [facility] will contact you directly. Contact Information Discharge Discharge Address: [address], [place] [address]
[2023-02-20] MEDS: CALCIUM CARBONATE 500 MG CHEWABLE TAB PO PRN (15:06)
[2023-02-20] MEDS: MIRTAZAPINE SOLTAB 15 MG PO SCH (21:05)
[2023-02-20] MEDS: QUEtiapine FUMARATE 300 MG TABLET PO SCH (21:07)
[2023-02-21] MEDS: LEVOTHYROXINE SODIUM 150 MCG TABLET PO SCH (07:42)
[2023-02-21] MEDS: MONTELUKAST SODIUM 10 MG TABLET PO SCH (08:29)
[2023-02-21] MEDS: GABAPENTIN 300 MG CAP PO SCH (08:30)
[2023-02-21] MEDS: FERROUS SULFATE 325 MG TAB PO SCH (08:31)
[2023-02-21] MEDS: DOCUSATE SODIUM 100 MG CAP PO SCH (08:31)
[2023-02-21] MEDS: CHOLECALCIFEROL 1,000 UNITS 25 MCG TAB PO SCH (08:32)
[2023-02-21] MEDS: THIAMINE HCL 100 MG TAB PO SCH (08:34)
[2023-02-21] MEDS: tiZANidine HCL 4 MG TABLET PO SCH (08:34)
[2023-02-21] MEDS: PANTOprazole 40 MG TAB PO SCH (08:34)
[2023-02-21] MEDS: FLUTICASONE FUROATE 200MCG 14 PUFFS/INHALER INH SCH (08:35)
[2023-02-21] MEDS: AZELASTINE HCL 0.1% NASAL 200 SPRAYS/27,400 MCG BTL SCH (08:35)
[2023-02-21] MEDS: UMECLIDINIUM/VILANTEROL 62.5/25MCG 7 PUFFS/INHALER INH SCH (08:35)
[2023-02-21] MEDS: DICLOFENAC SODIUM 25 MG TABDR PO SCH (08:36)
[2023-02-21] MEDS: FLUTICASONE PROPIONATE NA SPR 16 GM BTL SCH (08:36)
[2023-02-21] MEDS: NICOTINE 21 MG/24 HR TDSY TD SCH (09:03)
--- NOTE | 2023-02-21 10:34 | Discharge Summary ---
Date of Service February 21, 2023 History of Present Illness The patient reported that he's been feeling more irritable and depressed. He isn't sleeping as well and having more racing thoughts about suicide. In November he had a gun in his mouth, his father physically intervened and removed the guns from the home. The patient mentioned drinking excessive alcohol with his medications with the hope of not waking up but "nothing happened but I threw up." He feels guilty for relapsing after 15 years of sobriety. He describes his life as "down hill" since his cancer surgery 5 years ago--his friends stopped "coming around", he is estranged from his sister, parents are aging (father may have early dementia), his girlfriend broke up with him recently and he's been unable to find a job that can accommodate his post op left UE neuropathy. He feels that his doctor may be colluding with his ex to ignore his pain complaints and recently involved a patient advocate through [employer] to get a return call. He doesn't feel that his meds have been helping for some time nor is the medical MJ (mainly flower) helping with his pain or sleep. He notes an increase in health related anxiety given his ongoing GI issues, need to start PT, and his need for EKG to rule out QTc due to polypharmacy (reports last EKG 1 month ago). Physical Exam Psychiatric See admission H&P and DOD assessment. Vital Signs (Past 24 Hours) Last Vital Signs Temp 36.7 C 02/21/23 10:16 Pulse 84 02/21/23 10:16 Resp 16 02/21/23 10:16 BP 131/92 02/21/23 10:16 Pulse Ox 98 02/21/23 10:16 O2 Del Method Room Air 02/20/23 07:00 Principal Diagnosis bipolar disorder Psychiatric Data See daily stay summary. In short, safety was maintained and the patient was cooperative with care. Medication changes included discontinuation of Buspar and topamax due to questionable efficacy. His Neurontin was increased to TID to address breakthrough neuropathy and ongoing anxiety. His Seroquel was decreased from 800 mg to 600 mg as no interval improvement per patient at higher dose and triglycerides were elevated. He understands that further taper would be necessary on an outpatient basis before starting another atypical such as Zyprexa. Remeron was continued. He tolerated these changes well. A family session was held with his mother and safety plan was completed prior to discharge. Day of Discharge Assessment Today the patient voices readiness for discharge. They note improvement in mood and deny thoughts to harm self or others. Thoughts remain organized and they are improved from admission. There is no evidence of psychosis. They agree to take mediations as prescribed and keep follow-up appointments. They are stable for discharge to outpatient level of care. Transition of Care Transition Of Care Record: was reviewed with the patient Advance Directives Advance Directives Information Provided: Yes Advance Directives: No Mental Health Advance Directive: No Advance Directives on File: No Living Will: No Power of Stone Operator: No Advance Directives Reason:: Declines as Mental Health Visit. Suicide Risk Level Suicide Risk Level Comments: Suicide risk at discharge is deemed low as the patient is no longer requiring 24-hr monitoring, has a safety plan, and is free of suicidal ideation at discharge. Risk Factors Assessment Male: Yes : Yes Do You Have Access To A Gun?: No Health Problems: Yes Mental Health Diagnoses: Yes Substance Use Disorders: Yes (hx EToh, recent use, ongoing MJ) Previous Attempt: Yes Family History of Suicide: No Previous Psychiatric Hospitalization: Yes Protective Factors Assessment Employed: No Supportive Family: Yes (parents as able) Tobacco Cessation at Discharge Tobacco Cessation Medication Prescribed at Discharge: Offered & Pt Refused Total Time Total Time Spent: Greater Than 30 Minutes Total Time Includes: Examination of the patient, Discharge Planning and Medication Reconciliation Discharge Data Lab Results 02/18/23 02/18/23 02/18/23 11:33 11:35 11:35 WBC 9.01 RBC 5.21 Hgb 15.4 Hct 46.3 MCV 88.9 MCH 29.6 MCHC 33.3 RDW Std Deviation 42.5 RDW Coeff of Eugenia 13.0 Plt Count 313 MPV 8.4 L Immature Gran % (Auto) 0.6 Neut % (Auto) 66.8 Lymph % (Auto) 24.8 Lyon % (Auto) 6.2 Eos % (Auto) 1.3 Baso % (Auto) 0.3 Neut # (Auto) 6.02 Lymph # (Auto) 2.23 Lyon # (Auto) 0.56 Eos # (Auto) 0.12 Baso # (Auto) 0.03 Immature Gran # (Auto) 0.05 Sodium 138 Potassium 4.3 Chloride 110 H Carbon Dioxide 23 Anion Gap 5 BUN 22 Creatinine 1.07 Est Cr Clr Drug Dosing Not Reportable Est GFR ( Amer) 100.1 Est GFR (Non-Af Amer) 86.4 BUN/Creatinine Ratio 20.6 H Glucose 106 H Fasting Glucose Calcium 8.9 Total Bilirubin 0.2 AST 15 ALT 9 Alkaline Phosphatase 75 Total Protein 7.2 Albumin 4.5 Globulin 2.7 Albumin/Globulin Ratio 1.7 Triglycerides Cholesterol LDL Cholesterol, Calc VLDL Cholesterol, Calc HDL Cholesterol Cholesterol/HDL Ratio TSH Free T4 Urine Color Urine Appearance Urine pH Ur Specific [place] Urine Protein Urine Glucose (UA) Urine Ketones Urine Blood Urine Nitrite Urine Bilirubin Urine Urobilinogen Ur Leukocyte Esterase Salicylates Urine Opiates Screen Ur Methadone, Qual Acetaminophen Urine Barbiturates Ur Phencyclidine (PCP) U Amphetamin/Meth Scrn MDMA (Ecstasy) Screen U Benzodiazepines Scrn Ur Cocaine Metabolite U Marijuana (THC) Screen U Marijuana THC Carboxy Drug Screen Comment Ethyl Alcohol mg/dL SARS-CoV-2, RNA, NAAT NEGATIVE 02/18/23 02/18/23 02/18/23 11:35 11:35 11:35 WBC RBC Hgb Hct MCV MCH MCHC RDW Std Deviation RDW Coeff of Eugenia Plt Count MPV Immature Gran % (Auto) Neut % (Auto) Lymph % (Auto) Lyon % (Auto) Eos % (Auto) Baso % (Auto) Neut # (Auto) Lymph # (Auto) Lyon # (Auto) Eos # (Auto) Baso # (Auto) Immature Gran # (Auto) Sodium Potassium Chloride Carbon Dioxide Anion Gap BUN Creatinine Est Cr Clr Drug Dosing Est GFR ( Amer) Est GFR (Non-Af Amer) BUN/Creatinine Ratio Glucose Fasting Glucose Calcium Total Bilirubin AST ALT Alkaline Phosphatase Total Protein Albumin Globulin Albumin/Globulin Ratio Triglycerides Cholesterol LDL Cholesterol, Calc VLDL Cholesterol, Calc HDL Cholesterol Cholesterol/HDL Ratio TSH 0.172 L Free T4 0.68 Urine Color Urine Appearance Urine pH Ur Specific [place] Urine Protein Urine Glucose (UA) Urine Ketones Urine Blood Urine Nitrite Urine Bilirubin Urine Urobilinogen Ur Leukocyte Esterase Salicylates < 3.0 L Urine Opiates Screen Ur Methadone, Qual Acetaminophen < 3 L Urine Barbiturates Ur Phencyclidine (PCP) U Amphetamin/Meth Scrn MDMA (Ecstasy) Screen U Benzodiazepines Scrn Ur Cocaine Metabolite U Marijuana (THC) Screen U Marijuana THC Carboxy Drug Screen Comment Ethyl Alcohol mg/dL < 10.0 SARS-CoV-2, RNA, NAAT 02/18/23 02/18/23 02/18/23 11:40 11:40 11:40 WBC RBC Hgb Hct MCV MCH MCHC RDW Std Deviation RDW Coeff of Eugenia Plt Count MPV Immature Gran % (Auto) Neut % (Auto) Lymph % (Auto) Lyon % (Auto) Eos % (Auto) Baso % (Auto) Neut # (Auto) Lymph # (Auto) Lyon # (Auto) Eos # (Auto) Baso # (Auto) Immature Gran # (Auto) Sodium Potassium Chloride Carbon Dioxide Anion Gap BUN Creatinine Est Cr Clr Drug Dosing Est GFR ( Amer) Est GFR (Non-Af Amer) BUN/Creatinine Ratio Glucose Fasting Glucose Calcium Total Bilirubin AST ALT Alkaline Phosphatase Total Protein Albumin Globulin Albumin/Globulin Ratio Triglycerides Cholesterol LDL Cholesterol, Calc VLDL Cholesterol, Calc HDL Cholesterol Cholesterol/HDL Ratio TSH Free T4 Urine Color Yellow Urine Appearance Clear Urine pH 7.5 Ur Specific [place] 1.013 Urine Protein Negative Urine Glucose (UA) Negative Urine Ketones Negative Urine Blood Negative Urine Nitrite Negative Urine Bilirubin Negative Urine Urobilinogen Negative Ur Leukocyte Esterase Negative Salicylates Urine Opiates Screen Neg Ur Methadone, Qual Neg Acetaminophen Urine Barbiturates Neg Ur Phencyclidine (PCP) Neg U Amphetamin/Meth Scrn Neg MDMA (Ecstasy) Screen Neg U Benzodiazepines Scrn Neg Ur Cocaine Metabolite Neg U Marijuana (THC) Screen Pos H U Marijuana THC Carboxy 411 H Drug Screen Comment SEE NOTE Ethyl Alcohol mg/dL SARS-CoV-2, RNA, NAAT 02/19/23 08:28 WBC RBC Hgb Hct MCV MCH MCHC RDW Std Deviation RDW Coeff of Eugenia Plt Count MPV Immature Gran % (Auto) Neut % (Auto) Lymph % (Auto) [place] % (Auto) Eos % (Auto) Baso % (Auto) Neut # (Auto) Lymph # (Auto) [place] # (Auto) Eos # (Auto) Baso # (Auto) Immature Gran # (Auto) Sodium Potassium Chloride Carbon Dioxide Anion Gap BUN Creatinine Est Cr Clr Drug Dosing Est GFR ( Amer) Est GFR (Non-Af Amer) BUN/Creatinine Ratio Glucose Fasting Glucose 95 Calcium Total Bilirubin AST ALT Alkaline Phosphatase Total Protein Albumin Globulin Albumin/Globulin Ratio Triglycerides 289 H Cholesterol 217 H LDL Cholesterol, Calc 129 VLDL Cholesterol, Calc 58 H HDL Cholesterol 30 Cholesterol/HDL Ratio 7.2 H TSH Free T4 Urine Color Urine Appearance Urine pH Ur Specific [place] Urine Protein Urine Glucose (UA) Urine Ketones Urine Blood Urine Nitrite Urine Bilirubin Urine Urobilinogen Ur Leukocyte Esterase Salicylates Urine Opiates Screen Ur Methadone, Qual Acetaminophen Urine Barbiturates Ur Phencyclidine (PCP) U Amphetamin/Meth Scrn MDMA (Ecstasy) Screen U Benzodiazepines Scrn Ur Cocaine Metabolite U Marijuana (THC) Screen U Marijuana THC Carboxy Drug Screen Comment Ethyl Alcohol mg/dL SARS-CoV-2, RNA, NAAT Hospital Course (1) Suicidal ideations: Plan 02/20/23: Titrate Neurontin to 900 mg TID. family meeting. 02/19/23: [facility] on q15 min checks (behavioral with suicide precautions) for safety. The patient will participate in group, recreational, and milieu therapies and will be offered additional individual and family sessions as clinically appropriate. Reviewed cholesterol panel, his triglycerides are quite high (likely Seroquel). Buspar has already been discontinued, topamax may be decreasing his appetite so will d/c. Begin Seroquel taper 600 mg hs with plan for another atypical trial, perhaps Zyprexa given sleep and appetite issues. Consider Remeron taper. Ambien short term use as prn for sleep as multiple agents ineffective. Will add mid day dose of Neurontin to address breakthrough pain/mood. PT consult as was to start outpatient PT this week for left UE neuropathy. Mental Health & Subst Abuse Tx Psychiatrist Name of Psychiatrist: RAGINI Urena Psychiatrist's Date Of Appointment With Psychiatric Provider: 02/25/23 Time of Appointment with Psychiatrist: 3:30 PM Psychiatric Appointment Comment: This appointment will be virtual. Psychiatrist Release of Information: Obtained, Reviewed and Signed Therapist Name of Therapist: Peggy Rosa [facility] Therapist's Time of Therapist Appointment: You have been referred and placed on the waitlist. Therapy Appointment Comment: When a spot opens, you will be contacted directly. Therapist Release of Information: Obtained, Reviewed and Signed Web Offset Press Feeder Name of Web Offset Press Feeder: [employer] Phone Number for Web Offset Press Feeder: [phone] Case Management Appointment Comment: A supportive employment case manager will be assigned and follow- up with you directly. Web Offset Press Feeder Release of Information: Obtained, Reviewed and Signed Post Discharge Appointments Primary Care Physician Name Of Family Doctor/PCP: [facility] Time of Appointment with PCP: Please follow-up with your PCP as needed. Provider Appointment Comment: [address] [facility], TRISTAN [facility] Release of Information: Obtained, Reviewed and Signed Welding Machine Operator [employer] Name of Welding Machine Operator [employer]: [facility] Community Resources - Crisis Peer Support Phone Number of Welding Machine Operator [employer]: [phone] Welding Machine Operator [employer] Appointment Comment: A referral was made and [facility] will contact you directly. Smoking Cessation Counseling Tobacco Cessation Medication Prescribed at Discharge: Offered & Pt Refused Contact Information Discharge Discharge Address: [address] , [place] [address] Discharge Plan Discharge Items Patient Disposition: Home - Self-Care Reason For Visit: BIPOLAR DISORDER Discharge Diagnosis: bipolar disorder Activity: Resume your previous activity Non-emergency contact: Primary Care Provider, Psychiatrist, Therapist and Electrical Engineering Intern Call non-emergency contact if: you have any medication questions and your symptoms worsen Follow-up/Referrals: Quincy Parson DO [Primary Care Provider] - Diet: Regular Addtl Attending Provider Instructions: SPECIAL CARE INSTRUCTIONS: 1. Follow through with your scheduled aftercare appointments. If unable to keep an appointment, please call to reschedule. 2. Take your medication only as prescribed. Medication should not be changed or stopped without the approval of your doctor. In the event of worsening symptoms or concerns about side effects, contact your doctor immediately. 3. Utilize new healthy coping skills, anger management skills, and stress management skills learned during your hospitalization. Journal feelings and process them with a support person. Identify stressors or situations that may result in relapse, deterioration or inappropriate behaviors and develop a plan to deal with those issues. 4. If your coping skills are ineffective and you are in crisis, contact your outpatient providers for direction. If unable to reach your providers, please call the [facility] CRISIS LINE AT , go to the [facility] walk-in center at [address], [place], or go to the closest Emergency Room. 5. Avoid alcohol and un-prescribed drugs. 6. You have been provided with the Mental Health Advance Directives Pamphlet for your review. 7. Your condition is stable for discharge to outpatient level of care, but recovery is an ongoing process. Ifthoughts to harm yourself or others return, follow the safety plan developed during your stay. Planning for a safe return home includes securing weapons. Our treatment team recommends weaponsbe removed from the home until your outpatient provider reassesses your progress. In rare cases where the items themselvescannot be removed, guns and ammunitionshould be secured separatelyand keys stored by a reliable personoutside of the home. If you were admitted on an involuntary commitment, the police or other legal authorities may be involved in this process. AFTERCARE APPOINTMENTS: * Please call your insurance company prior to your scheduled appointment to confirm your aftercare providers are covered. Take your insurance information to your appointments. WHO TO CALL AND WHEN: Medical Emergencies: For questions or emergencies related to your hospital stay, please contact the Inpatient Behavioral Health Unit at [phone]. A social worker psychiatric is on-call 24/03 for the Behavioral Health Unit for emergencies At any time you feel your situation is an emergency, you may also call 911 immediately. Pending Studies at Discharge: No Stand-Alone Forms: [facility], Smoking Cessation Medications and DC Order Prescriptions: New quetiapine 300 mg Tablet 600 mg PO HS Qty: 60 0RF polyethylene glycol 3350 [Miralax] 17 gram Powder In Packet 17 g PO DAILY PRN (Reason: constipation) Qty: 30 0RF docusate sodium 100 mg Capsule 200 mg PO BID Qty: 1 0RF Continued albuterol sulfate [Ventolin HFA] 90 mcg/actuation HFA aerosol inhaler 2 puff INHALATION QID PRN (Reason: SHORT OF BREATH) Qty: 18 5RF omeprazole 20 mg Tablet,Delayed Release (Dr/Ec) 40 mg PO QAM hydroxyzine HCl 50 mg tablet 50 - 150 mg PO HS PRN (Reason: Sleep) Patient Comments: 50 mg PO take 1 -2 tablet at bedtime PRN; Rx Instructions: 50 mg PO take 1 -2 tablet at bedtime PRN; calcium carbonate [Tums] 200 mg calcium (500 mg) Tablet,Chewable 200 mg PO TID PRN (Reason: GERD) thiamine HCl (vitamin B1) 100 mg Tablet 100 mg PO QAM levothyroxine 150 mcg Tablet 150 mcg PO QAM mirtazapine 45 mg Tablet 45 mg PO HS montelukast [Singulair] 10 mg Tablet 10 mg PO QAM azelastine 137 mcg (0.1 %) Aerosol,[place] 1 spray INTRANASAL BID Rx Instructions: administer into each nostril fluticasone propionate 50 mcg/actuation [place],Suspension 2 spray INTRANASAL QAM Rx Instructions: administer into each nostril Trelegy Ellipta 200-62.5-25 mcg Blister With Device 1 inh INHALATION QAM ferrous sulfate 325 mg (65 mg iron) Tablet 325 mg PO 3XWK albuterol sulfate 2.5 mg /3 mL (0.083 %) Solution For Nebulization 2.5 mg INHALATION UD PRN (Reason: Shortness Of Breath) diclofenac sodium 50 mg tablet,delayed release (DR/EC) 50 mg PO TID PRN (Reason: Pain) cholecalciferol (vitamin D3) 125 mcg (5,000 unit) capsule 125 mcg PO DAILY Changed gabapentin 300 mg capsule 900 mg PO TID Qty: 270 0RF tizanidine 4 mg Capsule 4 mg PO TID Qty: 1 0RF Discontinued topiramate [Topamax] 100 mg Tablet 150 mg PO HS Rx Instructions: 1 and 1/2 pills HS acetaminophen 500 mg Tablet 1,000 mg PO Q6H PRN (Reason: Pain) quetiapine [Seroquel] 400 mg Tablet 800 mg PO HS buspirone 10 mg tablet 20 mg PO BID Discharge Orders: Discharge Order (Routine); Ordered 02/21/23 Ordered By: Keerthi Shah Admission Data Admit Date/Time: 02/18/23 14:42 Attending Provider: Keerthi Shah Admit Provider: Keerthi Shah Primary Care Provider: Quincy Parson Other Interventions: Discharge Summary Assessment (RN) Last Done: 02/21/23 10:16 Coding Level of Care Code 54305 D/C day mgmt > 30 min Diagnoses Suicidal ideations R45.851
== END 2023-02-21 11:15 | disposition home or self-care (01) | DRG 885 ==
LOC: ED 11:14 → 3S 14:42